=== PATIENT | female | born 1995 | race Caucasian/White ===

== ENCOUNTER 2017-01-15 01:45 | Emergency (ER) | payer OTHER ==
[2017-01-15] MEDS ORDERED: KETOROLAC 60 MG/2 ML VIAL IM STA (02:34)
[2017-01-15] MEDS ORDERED: oxyCODONE 5 MG TABLET PO STA (02:34)
[2017-01-15] MEDS ORDERED: KETOROLAC 60 MG/2 ML VIAL ONE (02:35)
[2017-01-15] MEDS ORDERED: oxyCODONE 5 MG TABLET ONE (02:35)
[2017-01-15] MEDS ORDERED: oxyCODONE/ACET 5/325 Prepack 4 PO STA (02:39)
[2017-01-15] MEDS ORDERED: oxyCODONE/ACET 5/325 Prepack 4 PO ONE (02:43)
== END 2017-01-15 03:34 | disposition home or self-care (01) ==
DX: K08.89 Other specified disorders of teeth and supporting structures (principal); S02.5XXA Fracture of tooth (traumatic), initial encounter for closed fracture; X58.XXXA Exposure to other specified factors, initial encounter; I10 Essential (primary) hypertension
CPT/HCPCS: 96372; 99283; A9270

== ENCOUNTER 2018-06-02 01:24 | Emergency (ER) | payer OTHER ==
[2018-06-02] MEDS ORDERED: BUFFERED LIDOCAINE 10 ML SYRINGE ONE (01:51)
[2018-06-02] MEDS ORDERED: DOXYCYCLINE 100 MG TABLET PO STA (02:07)
--- NOTE | 2018-06-02 02:09 | ED Physician Documentation ---
PD HPI SKIN - Stated complaint Stated Complaint: LUMP ON ABDOMEN - Chief complaint Chief Complaint: Wound - History obtained from History obtained from: Patient - Additional information Additional information: 22-year-old female with a history of recurrent abscesses and cellulitis of her groin and abdomen presents the emergency department for evaluation of an abscess and surrounding erythema. The patient started doxycycline 2 days ago to help minimize the infection but she reports increased pain and redness. The patient denies fevers, chills. No relieving factors. Symptoms are described as moderate. No other associated symptoms. Review of Systems Constitutional: denies: Fever, Chills Eyes: denies: Discharge Skin: reports: Lesions Neurologic: denies: Generalized weakness Immunocompromised: denies: Chemotherapy PD PAST MEDICAL HISTORY - Past Medical History Past Medical History: Yes Cardiovascular: Hypertension Musculoskeletal: Chronic back pain Other Past Medical History: Hidradenitis suppurativa - Past Surgical History Past Surgical History: No - Present Medications Home Medications: Ambulatory Orders Medication Instructions Recorded Confirmed Clindamycin Phosphate 30 ml TP DAILY 06/02/18 Doxycycline Monohydrate 100 mg PO BID 06/02/18 06/02/18 #103/Iron Fumarate/FA 1 tab PO DAILY 06/02/18 [ Tablet] - Allergies Allergies/Adverse Reactions: Allergies Allergy/AdvReac Type Severity Reaction Status Date / Time No Known Drug Allergies Allergy Verified 06/02/18 01:33 - Social History Does the pt smoke?: Yes Smoking Status: Current every day smoker Does the pt drink ETOH?: Yes Does the pt have substance abuse?: No Substance Use and Type: Marijuana - Immunizations Immunizations are current?: Yes - POLST Patient has POLST: No PD ED PE NORMAL - General General: Alert and oriented X 3, No acute distress - HEENT HEENT: Atraumatic, PERRL, EOMI - Respiratory Respiratory: No respiratory distress - Abdomen Abdomen: Other (There is a 3 cm x 3 cm fluctuant area under the patient's pannus with surrounding erythematous changes.) - Derm Derm: Other (Lower abdominal wall abscess) - Extremities Extremities: No deformity - Neuro Neuro: Alert and oriented X 3, Normal speech - Psych Psych: Normal affect Results - Vitals Vitals: Vital Signs - 24 hr 06/02/18 01:28 Temperature 37.0 C Heart Rate 115 H Respiratory 18 Rate Blood Pressure 156/116 H O2 Saturation 99 Oxygen O2 Source Room air Procedures - Abscess I&D (location) Abdomen Preparation: Confirmed with ultrasound, Betadine, Lidocaine 1% Incision: Incised with scalpel, Purulent drainage, Packed Other: Pt tolerated well, Dressing applied PD MEDICAL DECISION MAKING - ED course ED course: The patient's abscess was drained and packed. I have advised follow-up in 48 hours for a wound recheck and packing removal. The patient will continue the doxycycline. I discussed warning signs and recommended returning to the emergency department immediately for any worsening or any concerns. - Sepsis Event Vital Signs: Vital Signs - 24 hr 06/02/18 01:28 Temperature 37.0 C Heart Rate 115 H Respiratory 18 Rate Blood Pressure 156/116 H O2 Saturation 99 Oxygen O2 Source Room air Departure - Departure Disposition: 01 Home, Self Care Clinical Impression: Abscess or cellulitis of groin Condition: Good Instructions: ED Abscess IandD Follow-Up: ALLAN WHITFIELD [Primary Care Provider] - (Please follow-up with your primary care physician in 48 hours for a packing removal and wound recheck. If they are unable to see you in 48 hours please return to the emergency department for wound recheck) Comments: Please return to the emergency department immediately for worsening symptoms or any concerns
[2018-06-02 02:26] VITALS: BP 178/107
== END 2018-06-02 02:26 | disposition home or self-care (01) ==
LOC: ED 01:24
DX: L02.211 Cutaneous abscess of abdominal wall (principal); L53.9 Erythematous condition, unspecified; I10 Essential (primary) hypertension; F17.200 Nicotine dependence, unspecified, uncomplicated
CPT/HCPCS: 10060; 99282; 99283; A9270

== ENCOUNTER 2020-06-19 10:34 | Emergency (ER) | payer OTHER ==
[2020-06-19] MEDS ORDERED: SODIUM CHLORIDE 0.9% 1,000 ML IV STA (11:13)
[2020-06-19] MEDS ORDERED: MECLIZINE 12.5 MG TABLET PO STA (11:39)
[2020-06-19] MEDS ORDERED: diazePAM INJ 5 MG/ML SYRINGE IVP STA (11:39)
--- NOTE | 2020-06-19 11:42 | ED Physician Documentation ---
History of Present Illness - Stated complaint Stated Complaint: DIZZINESS - Chief complaint Chief Complaint: Neuro - History obtained from History obtained from: Patient - Additonal information Additional information: Patient comes emergency department complaining of a sense of dizziness/movement when she turns her head to the side or rises from a supine or sitting position to a standing position for the last couple of days. Patient states that she has never had vertigo before. She denies any lightheadedness or near syncope. No palpitations. Patient has not been nauseated or vomiting. No tinnitus. She states she has a history of hidradenitis supra T[address] [place] for which she is currently on Bactrim, but that she has never had a problem with side effects from this medication previously. Patient denies fevers or chills. She denies any recent head injury. No recent viral upper respiratory infection. Patient states that she bumped into a wall while walking today because she felt off balance, due to the vertigo. She states that if she holds her head very still and focuses her eyes in one spot, she can get the sense of vertigo to stop. She states it is definitely worse with movement. No headache. No other complaints at this time. Review of Systems Ten Systems: 10 systems reviewed and negative Constitutional: reports: Reviewed and negative Eyes: reports: Reviewed and negative Ears: reports: Reviewed and negative. denies: Tinnitus/ringing Nose: reports: Reviewed and negative Throat: reports: Reviewed and negative Cardiac: reports: Reviewed and negative Respiratory: reports: Reviewed and negative GI: reports: Reviewed and negative : reports: Reviewed and negative Skin: reports: Reviewed and negative Musculoskeletal: reports: Reviewed and negative Neurologic: reports: Other (Dizziness/vertigo) Psychiatric: reports: Reviewed and negative Endocrine: reports: Reviewed and negative Immunocompromised: reports: Reviewed and negative PD PAST MEDICAL HISTORY - Past Medical History Cardiovascular: Hypertension Respiratory: None Neuro: None Endocrine/Autoimmune: None GI: None 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 : None HEENT: None Psych: Depression Musculoskeletal: Chronic back pain Derm: None - Past Surgical History Past Surgical History: Yes Ortho: Other - Present Medications Home Medications: Ambulatory Orders Medication Instructions Recorded Confirmed Clindamycin Phosphate 30 ml TP DAILY 06/02/18 Doxycycline Monohydrate 100 mg PO BID 06/02/18 06/02/18 [id number]/Iron Fum/Folic 1 tab PO DAILY 08/06/18 [ Tablet] Clindamycin Phosphate [Cleocin T] 1 film TP BID #1 lotion 06/16/20 Doxycycline Hyclate 100 mg PO BID #19 capsule 06/16/20 Meclizine HCl 25 mg PO Q6HR PRN #20 tablet 06/19/20 - Allergies Allergies/Adverse Reactions: Allergies Allergy/AdvReac Type Severity Reaction Status Date / Time phenytoin [From Dilantin] AdvReac Hives Verified 06/19/20 10:40 - Social History Does the pt smoke?: No Smoking Status: Never smoker Does the pt drink ETOH?: Yes Does the pt have substance abuse?: No - Immunizations Immunizations are current?: Yes - POLST Patient has POLST: No PD ED PE NORMAL - Vitals Vital signs reviewed: Yes - General General: Alert and oriented X 3, No acute distress, Well developed/nourished - HEENT HEENT: Atraumatic, PERRL, EOMI, Ears normal, Moist mucous membranes - Neck Neck: Supple, no meningeal sign - Cardiac Cardiac: RRR, No murmur - Respiratory Respiratory: No respiratory distress, Clear bilaterally - Abdomen Abdomen: Soft, Non tender, Non distended - Derm Derm: Normal color, Warm and dry, No rash - Extremities Extremities: No deformity - Neuro Neuro: Alert and oriented X 3, 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-12 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, No motor deficit, No sensory deficit, Normal speech, Other (Ambulatory on a steady, narrow-based gait.) - Psych Psych: Normal mood, Normal affect Results - Vitals Vitals: Vital Signs - 24 hr 06/19/20 06/19/20 10:38 11:10 Temperature 36.8 C 36.5 C Heart Rate 79 76 Respiratory 18 18 Rate Blood Pressure 149/86 H 150/99 H O2 Saturation 98 100 Oxygen O2 Source Room air - Labs Labs: Laboratory Tests 06/19/20 06/19/20 12:00 12:00 WBC 6.9 RBC 4.44 Hgb 14.7 Hct 43.1 MCV 97.1 MCH 33.1 H MCHC 34.1 RDW 11.9 L Plt Count 267 MPV 10.9 H Neut # (Auto) 4.0 Lymph # (Auto) 2.2 Brule # (Auto) 0.6 Eos # (Auto) 0.1 Baso # (Auto) 0.0 Absolute Nucleated RBC 0.00 Nucleated RBC % 0.0 Sodium 137 Potassium 4.5 Chloride 104 Carbon Dioxide 26 Anion Gap 7.0 BUN 10 Creatinine 0.5 Estimated GFR (MDRD) 150 Glucose 87 Calcium 8.5 Total Bilirubin 0.7 AST 36 ALT 54 Alkaline Phosphatase 58 Total Protein 7.2 Albumin 3.6 Globulin 3.6 Albumin/Globulin Ratio 1.0 Lipase 27 PD MEDICAL DECISION MAKING - ED course Complexity details: reviewed old records, reviewed results, re-evaluated patient, considered differential, d/w patient ED course: I discussed with the patient that her symptoms are most consistent with a benign positional vertigo. She was worked up with labs, including TSH, and given IV fluids, meclizine, and a small dose of Valium. The patient had a regular cardiac rhythm with a normal rate, and I did not feel it was likely that her symptoms were secondary to a cardiac issue. The patient's work-up was unrem arkable. She was found to be filling much better after symptomatic treatment in the emergency department. I have discussed the most likely causes of her symptoms with her and the self-limited nature, generally, of this condition. We have discussed home management of the symptoms, as well as the usual indications for return. She has been given a prescription for meclizine for at home. Departure - Departure Disposition: 01 Home, Self Care Clinical Impression: Vertigo Condition: Stable Instructions: ED Vertigo Unspecified Prescriptions: Meclizine HCl 25 mg PO Q6HR PRN #20 tablet PRN Reason: Vertigo Comments: Your labs look good today. Your symptoms are most consistent with benign positional vertigo, as we have discussed. There are variety of causes for this and in general, and the symptoms will go away on their own in time. Please take the meclizine, as needed, and be sure to drink plenty of fluids. You may follow-up with your primary care physician if you are not feeling better after the next week.
[2020-06-19 12:15] LABS: BASOPHILS % (AUTO) 0.6 %; EOSINOPHILS # (AUTO) 0.1 10^3/uL (0.0-0.7); EOSINOPHILS % (AUTO) 1.3 %; HGB - HEMOGLOBIN 14.7 g/dL (12.0-16.0); LYMPHOCYTES # (AUTO) 2.2 10^3/uL (1.5-3.5); LYMPHOCYTES % (AUTO) 31.6 %; MEAN CORPUSCULAR HEMOGLOBIN 33.1 pg (27.0-31.0); MEAN CORPUSCULAR HGB CONC 34.1 g/dL (32.0-36.0); MEAN CORPUSCULAR VOLUME 97.1 fL (81.0-99.0); MEAN PLATELET VOLUME 10.9 fL (7.9-10.8); MONOCYTES # (AUTO) 0.6 10^3/uL (0.0-1.0); MONOCYTES % (AUTO) 8.6 %; PLT - PLATELET COUNT 267 10^3/uL (130-450); RED BLOOD COUNT 4.44 10^6/uL (4.20-5.40); RED CELL DISTRIBUTION WIDTH 11.9 % (12.0-15.0); WHITE BLOOD COUNT 6.9 x10^3/uL (4.8-10.8)
[2020-06-19 12:35] LABS: ALBUMIN 3.6 g/dL (3.2-5.5); BILIRUBIN,TOTAL 0.7 mg/dL (0.2-1.0); CALCIUM 8.5 mg/dL (8.5-10.3); CREATININE 0.5 mg/dL (0.4-1.0); TOTAL PROTEIN 7.2 g/dL (6.7-8.2)
[2020-06-19 13:29] VITALS: BP 138/73
== END 2020-06-19 13:29 | disposition home or self-care (01) ==
LOC: ED 10:34
DX: R42 Dizziness and giddiness (principal); I10 Essential (primary) hypertension
CPT/HCPCS: 36415; 83690; 96361; 96374; 99283; 99284; A9270; 80053; 84443; 85025

== ENCOUNTER 2020-09-04 19:45 | Emergency (ER) | payer OTHER ==
[2020-09-04] MEDS ORDERED: AMOX/CLAV 875 MG/125 MG TABLET PO STA (20:33)
--- NOTE | 2020-09-04 20:35 | ED Physician Documentation ---
History of Present Illness - Stated complaint Stated Complaint: HEAD PX - Chief complaint Chief Complaint: Neuro - History obtained from History obtained from: Patient - History of Present Illness Timing: How many days ago (3) Pain level max: 8 Pain level now: 8 - Additonal information Additional information: 24-year-old female presents to the emergency department stating she has a history of chronic recurrent ear infections. 2 to 3 days ago started having pain behind. She states it is worse with palpation. Occasionally has shooting pain down her neck. No fevers. No chills. No possibility of . 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 HEENT: None Psych: Depression Musculoskeletal: Chronic back pain Derm: None - Past Surgical History Past Surgical History: Yes Ortho: Other - Present Medications Home Medications: Ambulatory Orders Medication Instructions Recorded Confirmed Clindamycin Phosphate 30 ml TP DAILY 06/02/18 Doxycycline Monohydrate 100 mg PO BID 06/02/18 06/02/18 [id number]/Iron Fum/Folic 1 tab PO DAILY 06/02/18 [ Tablet] Clindamycin Phosphate [Cleocin T] 1 film TP BID #1 lotion 06/16/20 Doxycycline Hyclate 100 mg PO BID #19 capsule 06/16/20 Meclizine HCl 25 mg PO Q6HR PRN #20 tablet 06/19/20 Amox/Clav 875/125 [Augmentin] 1 tab PO Q12H #20 tablet 09/04/20 HYDROcod/ACETAM 5/325 [[place] 5/325] 1 - 2 ea PO Q6H PRN #10 tablet 09/04/20 - Allergies Allergies/Adverse Reactions: Allergies Allergy/AdvReac Type Severity Reaction Status Date / Time phenytoin [From Dilantin] AdvReac Hives Verified 09/04/20 19:55 - Social History Does the pt smoke?: No Smoking Status: Never smoker Does the pt drink ETOH?: Yes Does the pt have substance abuse?: No - Immunizations Immunizations are current?: Yes - POLST Patient has POLST: No PD ED PE NORMAL - Vitals Vital signs reviewed: Yes - General General: Alert and oriented X 3, No acute distress - HEENT HEENT: Moist mucous membranes, Other (Bilateral TM are normal. She is tender to palpation over the right mastoid area. Normal skin. No overlying skin changes. No displacement of the pinna.) - Neck Neck: Supple, no meningeal sign - Cardiac Cardiac: RRR - Respiratory Respiratory: No respiratory distress, Clear bilaterally - Abdomen Abdomen: Soft, Non tender, Non distended - Derm Derm: Warm and dry - Neuro Neuro: Alert and oriented X 3 - Psych Psych: Normal mood, Normal affect Results - Vitals Vitals: Vital Signs - 24 hr 09/04/20 19:45 Temperature 36.9 C Heart Rate 102 H Respiratory 16 Rate Blood Pressure 180/95 H O2 Saturation 96 Oxygen O2 Source Room air - Rads (name of study) CT mastoid Radiology: Prelim report reviewed, EMP read contemporaneously, See rad report (normal) PD MEDICAL DECISION MAKING - ED course Complexity details: reviewed results, re-evaluated patient, considered differential, d/w patient ED course: 24-year-old female presents to the emergency department with pain over the right mastoid area. Concern for possible mastoiditis. CT is negative. She is tender at that spot, will place on Augmentin and see how she progresses. Patient is otherwise well-appearing, nontoxic. No rash. No evidence of shingles, tinea. No evidence of carotid dissection. Patient counseled regarding signs and symptoms for which I believe and urgent re-evaluation would be necessary. Patient with good understanding of and agreement to plan and is comfortable going home at this time This document was made in part using voice recognition software. While efforts are made to proofread this document, sound alike and grammatical errors may occur. Departure - Departure Disposition: 01 Home, Self Care Clinical Impression: Scalp pain Condition: Good Instructions: ED Cephalgia Unspecified Follow-Up: Mey Tompkins, GUEST SERVICES ATTENDANT [Primary Care Provider] - Within 1 week Prescriptions: Amox/Clav 875/125 [Augmentin] 1 tab PO Q12H #20 tablet HYDROcod/ACETAM 5/325 [[place] 5/325] 1 - 2 ea PO Q6H PRN #10 tablet PRN Reason: Pain Comments: Take all antibiotics until gone. Return if you worsen Follow up with your doctor in 1 week for recheck. Your CT scan is normal tonight. Do not drink alcohol or drive while on narcotic pain medicine. Note that many narcotic pain relievers also contain tylenol/acetaminophen. Please ensure that your total dose of acetaminophen from all sources does not exceed 3 grams (3000mg) per day. You may constipated on this medication, take a stool softener such as "Colace" twice a day while you are on it. Also recommend a [id number]-kqu-zjgeprb laxative such as senna or MiraLAX any day that you do not have a bowel movement. If you received narcotic pain medication in the emergency department, do not drive or operate machinery for the next 24 hours.
--- NOTE | 2020-09-04 21:55 | CT Report ---
PROCEDURE: IAC'S WO INDICATIONS: R sided mastoid pain, swelling COMPARISON: None. TECHNIQUE: Noncontrast 0.6 mm thick direct axial and coronal sections acquired through each temporal bone separa tely. For radiation dose reduction, the following was used: automated exposure control, adjustment of mA and/or kV according to patient size. FINDINGS: Image quality: Excellent. RIGHT: External auditory canal: Canal has a normal appearance. Middle ear: The middle ear structures, including the ossicles and tympanic membrane, appear normal. No abnormal fluid or soft tissue opacification. Inner ear: Inner ear is normally formed and appears unremarkable. Facial nerve appears normal throu ghout is course. Mastoids: Mastoid air cells are clear. No bony erosions. LEFT: External auditory canal: Canal has a normal appearance. Middle ear: The middle ear structures, including the ossicles and tympanic membrane, appear normal. No abnormal fluid or soft tissue opacification. Inner ear: Inner ear is normally formed and appears unremarkable. Facial nerve appears normal throu ghout its course. Mastoids: Mastoid air cells are clear. No bony erosions. MISCELLANEOUS: Visualized surrounding bones appear unremarkable. Visualized intracranial structures , including the cerebellopontine angle cisterns, appear normal. IMPRESSION: 1. No evidence of mastoiditis. Specifically, no opacification or erosion of the mastoid air cells. Reviewed by: Brad Medel MD on 09/04/2020 9:54 PM [facility] Approved by: Brad Medel MD on 09/04/2020 9:54 PM [facility] Station ID: [id number]
[2020-09-04 22:28] VITALS: BP 160/90
== END 2020-09-04 22:26 | disposition home or self-care (01) ==
LOC: ED 19:45
DX: H92.01 Otalgia, right ear (principal); R51.9 Headache, unspecified; M54.2 Cervicalgia; I10 Essential (primary) hypertension
CPT/HCPCS: 70480; 99284; A9270

== ENCOUNTER 2021-08-30 10:44 | Outpatient (CLI) | payer OTHER ==
[2021-08-30 11:21] VITALS: BP 127/84
--- NOTE | 2021-08-30 11:21 | SLEEP CARE CONSULTATION ---
Information from patient questionnaire entered by Steff López MA. I have reviewed and concur with the information entered by Steff López MA. This document represents the service I personally performed and the decisions made by , Eleonora Justice ARNP. History of Present Illness Service Date and Time: 08/30/2021 1044 Reason for Visit: New patient Chief Complaint: reports: Insomnia, Unrefreshed sleep, Snoring, Fatigue, Other (referral) Date of Onset: 2013 Usual bedtime: 12 am Time it takes to fall asleep: 1-3 hours Snores at night: Yes Observed to quit breathing while asleep: Yes Sleeps alone due to snoring: No Number of times waking at night: 3+ Reasons for waking at night: reports: Choking, Snoring, Other (noise) Toss, Turn, or Twitch while sleeping: Yes Recalls having dreams: Yes Usually gets out of bed at: 10:00 am Feels refreshed in the morning: No Morning headache: No Sleepy or fatigued during the day: Yes Ever fallen asleep while driving: No Takes day naps: Yes (especially on days off) Dreams during day naps: No Prior sleep studies: No Additional HPI information: I had the pleasure of seeing QUINN NINO today regarding the possibility of her having a sleep disorder. Her current complaints are fatigue, insomnia, unrefreshed sleep and snoring. She is having bariatric surgery next month and was referred for evaluation of her snoring. She has had times that she has woken herself snoring and making choking sounds. She has a history of insomnia. She usually takes 1-3 hours to fall asleep. She wakes up an average 3 times a night. She can have difficulty getting back to sleep when she wakes up, from 15 minutes to hour, or not at all. She states she will sleep excessively on days she does not work to make up for not feeling rested. 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 Patient is and lives in [place]. Have you smoked in the past 12 months: No Alcohol use: Yes Alcohol amount and frequency: 1, 1 x month Caffeine use: No Family History Family history of sleep disordered breathing: No Family Hx Sleep Apnea: Mother: Snoring, Father: Snoring, Sibling: Snoring Allergies and Home Medications Known drug allergies: Yes Drug allergies reviewed: Yes (Phenytoin) Home medication list reviewed: Yes Allergy and home medication list: Zoloft Metoprolol Metformin to aid in weight loss Multivitamin Review of Systems Weight gain over past 5 years: 40 Weight loss over past 5 years: 20 Cardiovascular: reports: high blood pressure Gastrointestinal: reports: heartburn Neurological: reports: headaches Psychiatric: reports: depression. denies: anxiety Ear/Nose/Throat: reports: wisdom teeth removed. denies: tonsillectomy Endocrine: denies: thyroid disease Physical Exam Blood Pressure: 127/84 (right) Cuff size: wrist Heart Rate: 69 O2 Saturation: 98 Height: 5 ft 8.5 in Weight: 315 lb 9.6 oz Body Mass Index: 47.2 BMI Classification: Morbidly Obese Neck circumference: 17 (inches) Mouth and throat: narrow oropharynx Soft palate: long Hard palate: arched Uvula: normal Uvula visualization: 50% Mallampati Class II Tongue: enlarged in size with teeth mensah on lateral edges Tonsils: 2+ Neck: normal w/o lymphadenopathy or thyromegaly Heart: regular rate and rhythm Lungs: clear bilaterally Impression and Plan 1. Suspected Obstructive Sleep Apnea-Hypopnea Syndrome, as loud and irregular snoring, gasping or choking in sleep, frequent awakening during the night, and unrefreshed sleep. Narrow oropharynx and obesity are common predisposing factors for obstructive sleep apnea-hypopnea syndrome. I recommend proceeding to polysomnography to confirm the diagnosis and to assess severity. If the patient has significant sleep disordered breathing, a manual CPAP titration study will also be performed to find the optimal treatment pressure. I informed the patient of what the sleep studies involve and after some discussion, obtained agreement to proceed. The pathophysiology of obstructive sleep apnea-hypopnea syndrome was discussed with the patient and health risks of cardiovascular and cerebrovascular disease if not treated. AAS brochure for obstructive sleep apnea-hypopnea syndrome given and reviewed. 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 Patient agreed to plan. * Schedule polysomnography +- manual CPAP titration study and return in 1-2 weeks after the study to discuss result and initiate therapy. * Avoid long distance driving or driving when feeling sleepy. * Avoid alcohol, sedative and muscle relaxant around bedtime. * Attempt to lose weight. * Review instructions provided by trained office staff on how to prepare for the sleep study. * Return for follow-up after sleep study completed. Counseling Topics: Weight loss health impact Visit Type: In Office Time Spent with Patient (minutes): 30 Provider Statement: I spent 100% of the Face to Face Visit with the patient with greater than 50% spent counseling the patient and coordination of care.
== END 2021-08-30 10:45 | disposition home or self-care (01) ==
LOC: SC 10:44
PROVIDERS: ATTEND Nurse Practitioner Family
DX: R06.83 Snoring (principal); G47.8 Other sleep disorders; E66.01 Morbid (severe) obesity due to excess calories; Z68.42 Body mass index [BMI] 45.0-49.9, adult
CPT/HCPCS: 99203; 99212

== ENCOUNTER 2021-09-06 08:41 | Outpatient (CLI) | payer OTHER | END 2021-09-06 08:42 | disposition home or self-care (01) | LOC: SC 08:41 | PROVIDERS: ATTEND Nurse Practitioner Family | DX: G47.33 Obstructive sleep apnea (adult) (pediatric) (principal); R09.02 Hypoxemia; E66.9 Obesity, unspecified; Z68.42 Body mass index [BMI] 45.0-49.9, adult | CPT/HCPCS: 95806 ==

== ENCOUNTER 2021-09-15 09:40 | Outpatient (CLI) | payer OTHER ==
--- NOTE | 2021-09-15 09:41 | SLEEP CARE CONSULTATION ---
Information from patient questionnaire entered by Steff López MA. I have reviewed and concur with the information entered by Steff López MA. This document represents the service I personally performed and the decisions made by , Eleonora Justice ARNP. History of Present Illness Service Date and Time: 09/15/2021 0920 Initial [place] Sleepiness Scale score: 3 (2020) Current [place] Sleepiness Scale score: 3 Additional HPI information: QUINN NINO returns via video telehealth visit for follow up and results of the recently performed home sleep study. I explained the pathophysiology behind obstructive sleep apnea. We then spent quite a bit of time discussing different treatment options. For mild obstructive sleep apnea, surgery and oral appliance are alternatives to nasal CPAP therapy but in moderate or severe cases, nasal CPAP is the most effective and reliable treatment. Because apnea is primarily in supine position, then positional management therapy could be effective. Methods discussed such as positioning with pillows, using a T-shirt with tennis balls in the back, and shown commercial products that have a pillow format on back to prevent supine sleep. I reviewed the impact of weight changes on sleep apnea and strongly recommended losing weight. After some discussion, the patient opted to go with the nasal CPAP therapy. Nasal autoCPAP set at 4-15 cmH20 will be ordered with rationale explained. A manual titration study will be ordered if unable to find optimal pressure with office adjustments. I explained how CPAP machine works and what to expect when using the machine. Using CPAP every night in order to get used to it was emphasized. Patient advised to put CPAP mask on before getting into bed so as not to fall asleep without CPAP. To assist acclimation to CPAP use, it could also be used for a short time during day while reading or watching TV. The patient was instructed to call the CPAP supplier to discuss any mechanical problem that may occur. If the mask given is uncomfortable or is difficult to keep on through the night even with adjustment, contact the CPAP supplier as many will replace with another mask style if notified before 30 days. If snoring or perceives is not getting enough air or too much air from the machine, notify this office. Patient counseled not drink alcohol less than 4 hours before bedtime as it can increase snoring and apnea. Patient was cautioned about risks of drowsy driving until sleepiness symptoms resolve. Sleep Study - Results Type of Sleep Study: Home sleep study Prior sleep studies: No Polysomnography/Home Sleep Study results: Physician Impression: The quality of the study is fair due to partial loss of airflow signal.. The length of the study is adequate (> 240 minutes). Please also see the tabulated and graphic data. 1. Obstructive Sleep Apnea-Hypopnea (ICD-10 G47.33), moderate, with an AHI of 17.9/hr and marcial SaO2 of 86%. During the study, the patient had 7 apneas (7 obstructive, 0 central, 0 mixed) and 44 hypopneas. The longest episode lasted 71.0 seconds. The patient did not sleep supine during this study (supine AHI was 0.0 and non-supine, 17.92). 2. Hypoxemia (ICD-10 R09.02), mild, with the lowest oxygen saturation of 86 % and 2.2 minutes with SaO2 under 90%. Baseline oxygen saturation was normal (Average oxygen saturation was 95%). Allergies and Home Medications Home medication list reviewed: Yes (no changes) Review of Systems Review of systems same as previous: Yes (no changes) Physical Exam Vital signs obtained and entered by: Telehealth visit to reduce exposure during Covid pandemic Height: 5 ft 8.5 in Impression and Plan 1. Obstructive Sleep Apnea-Hypopnea Syndrome, moderate, with lowest oxygen saturation of 86%. Obviously this is the cause of the patients symptoms of unrefreshed sleep, and excessive daytime sleepiness. Positive pressure therapy c ould benefit hypertension, depression and gastric reflux. As mentioned above, the patient will be started on nasal autoCPAP therapy with pressure set at 4-15 cmH2O. A manual titration study will be completed if unable to find optimal treatment pressure with office adjustments. Compliance guidelines also reviewed. A copy of compliance guidelines will be given for reference at check out. 2. Hypoxemia, mild, with the lowest oxygen saturation of 86 % and 2.2 minutes with SaO2 under 90%. Her baseline oxygen saturation was normal with an average oxygen saturation of 95%. * Nasal auto CPAP therapy, pressure at 4-15 cm H2O. * Attempt to lose weight. * Avoid alcohol consumption near bedtime. * Avoid supine sleep until using CPAP. * The patient is again cautioned about driving until sleepiness completely resolves. * Return one month after CPAP obtained. I will assess response to therapy and compliance at that time. Counseling Topics: Weight loss health impact Visit Type: Telehealth Video Patient Location: Home Location of Provider: Office Patient agrees and consents to this telehealth visit type: Yes Patient agrees to have their insurance billed: Yes Time Spent with Patient (minutes): 21 Provider Statement: I spent 100% of the Telehealth Video Call with the patient with greater than 50% spent counseling the patient and coordination of care.
== END 2021-09-15 09:41 | disposition home or self-care (01) ==
LOC: SC 09:40
PROVIDERS: ATTEND Nurse Practitioner Family
DX: G47.33 Obstructive sleep apnea (adult) (pediatric) (principal); R09.02 Hypoxemia

== ENCOUNTER 2022-02-26 19:50 | Emergency (ER) | payer OTHER ==
[2022-02-26] MEDS ORDERED: SODIUM CHLORIDE 0.9% 1,000 ML IV STA ×2 (20:23→22:06)
[2022-02-26 20:34] LABS: BASOPHILS % (AUTO) 0.3 %; EOSINOPHILS # (AUTO) 0.1 10^3/uL (0.0-0.7); EOSINOPHILS % (AUTO) 1.4 %; HCT - HEMATOCRIT 41.8 % (37.0-47.0); HGB - HEMOGLOBIN 14.7 g/dL (12.0-16.0); LYMPHOCYTES # (AUTO) 2.8 10^3/uL (1.5-3.5); LYMPHOCYTES % (AUTO) 30.6 %; MEAN CORPUSCULAR HEMOGLOBIN 33.2 pg (27.0-31.0); MEAN CORPUSCULAR HGB CONC 35.2 g/dL (32.0-36.0); MEAN CORPUSCULAR VOLUME 94.4 fL (81.0-99.0); MEAN PLATELET VOLUME 10.1 fL (7.9-10.8); MONOCYTES # (AUTO) 0.7 10^3/uL (0.0-1.0); MONOCYTES % (AUTO) 7.8 %; NEUTROPHILS # (AUTO) 5.5 10^3/uL (1.5-6.6); NEUTROPHILS % (AUTO) 59.4 %; PLT - PLATELET COUNT 281 10^3/uL (130-450); RED BLOOD COUNT 4.43 10^6/uL (4.20-5.40); RED CELL DISTRIBUTION WIDTH 12.2 % (12.0-15.0); WHITE BLOOD COUNT 9.2 x10^3/uL (4.8-10.8)
[2022-02-26 20:47] LABS: ALBUMIN 4.1 g/dL (3.2-5.5); BILIRUBIN,TOTAL 1.1 mg/dL (0.2-1.0); CALCIUM 9.2 mg/dL (8.5-10.3); CREATININE 0.7 mg/dL (0.4-1.0); MAGNESIUM 1.7 mg/dL (1.7-2.8); POTASSIUM 3.6 mmol/L (3.5-5.0); TOTAL PROTEIN 8.2 g/dL (6.7-8.2)
[2022-02-26] MEDS ORDERED: IOVERSOL 320 50 ML VIAL ONE (20:50)
[2022-02-26] MEDS ORDERED: IOPAMIDOL-300 100 ML VIAL ONE (20:50)
[2022-02-26] MEDS ORDERED: IOPAMIDOL-300 100 ML VIAL IVP ONE (21:20)
[2022-02-26] MEDS ORDERED: IOVERSOL 320 50 ML VIAL PO ONE (21:20)
--- NOTE | 2022-02-26 22:07 | ED Physician Documentation ---
History of Present Illness - Stated complaint Stated Complaint: PRE OP COMPLICATIONS - Chief complaint Chief Complaint: General - History obtained from History obtained from: Patient - Additonal information Additional information: Patient is a 26-year-old female who is postop day 7 from a Cordelia-en-Y procedure at [facility]. She was kept in the hospital for 2 days due to difficulties with keeping up with p.o. hydration. Since discharge she has continued to have difficulties with maintaining recommended amounts of fluid intake She is feeling an aversion to taking in too much liquids. She a dditionally is having trouble taking in protein as various forms leave a bad taste or film in her mouth and she is not wanting to drinkThe protein options that she has.. She has recently been only able to take in approximately 8 ounces of fluid per dayAnd is supposed to take 64 ounces. She reports feeling shaky at times and having decreased energy. She denies associated nausea, vomiting or abdominal pain. She denies chest pain or difficulty breathing. She did speak with herBariatric surgeon who recommended coming to the emergency department for IV hydration. Her next scheduled follow-up is March 02.She denies any pain or swelling in lower extremities. Review of Systems Constitutional: denies: Fever Nose: denies: Congestion Cardiac: denies: Chest pain / pressure Respiratory: denies: Dyspnea, Cough GI: denies: Abdominal Pain, Vomiting, Diarrhea : denies: Dysuria Musculoskeletal: denies: Back pain Neurologic: reports: Generalized weakness. 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 : None HEENT: None Psych: Depression Musculoskeletal: Chronic back pain Derm: None - Past Surgical History Past Surgical History: Yes Ortho: Other - Present Medications Home Medications: Ambulatory Orders Medication Instructions Recorded Confirmed Clindamycin Phosphate 30 ml TP DAILY 06/02/18 02/26/22 Sic007/Iron Fum/Folic 1 tab PO DAILY 06/02/18 02/26/22 [ Tablet] Doxycycline Hyclate 100 mg PO BID #19 capsule 06/16/20 02/26/22 Metoprolol Tartrate [Lopressor] 50 mg PO ONCE 02/26/22 02/26/22 Omeprazole 40 mg PO DAILY 02/26/22 02/26/22 Sertraline [Zoloft] 50 mg PO DAILY 02/26/22 02/26/22 Topiramate 50 mg PO DAILY 02/26/22 02/26/22 - Allergies Allergies/Adverse Reactions: Allergies Allergy/AdvReac Type Severity Reaction Status Date / Time phenytoin [From Dilantin] AdvReac Hives Verified 02/26/22 19:57 - Social History Does the pt smoke?: No Smoking Status: Never smoker Does the pt drink ETOH?: Yes Does the pt have substance abuse?: No - Immunizations Immunizations are current?: Yes - POLST Patient has POLST: No PD ED PE NORMAL - General General: Alert and oriented X 3, No acute distress, Well developed/nourished - HEENT HEENT: Atraumatic, Moist mucous membranes, Pharynx benign - Neck Neck: Supple, no meningeal sign - Cardiac Cardiac: RRR, No murmur, Strong equal pulses - Respiratory Respiratory: No respiratory distress, Clear bilaterally - Abdomen Abdomen: Normal bowel sounds, Soft, Non distended, Other (Mild epigastric and periumbilical tenderness to palpation, well-healing incisions from recent surgery With no significant erythema or abnormal drainage) - Back Back: No CVA TTP - Derm Derm: Normal color, No rash - Extremities Extremities: No edema, No calf tenderness / cord - Neuro Neuro: Normal speech - Psych Psych: Normal mood, Normal affect Results - Vitals Vitals: Vital Signs - 24 hr 02/26/22 02/26/22 02/26/22 19:52 20:56 21:45 Temperature 35.6 C L Heart Rate 128 H 96 77 Respiratory 18 21 22 Rate Blood Pressure 149/92 H 152/98 H 144/73 H O2 Saturation 99 98 98 02/26/22 02/26/22 23:00 23:37 Temperature 36.3 C L 36.3 C L Heart Rate 71 72 Respiratory 16 16 Rate Blood Pressure 156/91 H 155/89 H O2 Saturation 98 99 Oxygen O2 Source Room air - EKG (time done) 2043 Rate: Rate (enter#) (87) Rhythm: NSR [place]: Normal Ischemia: No: ST elevation c/w ischemia Computer interpretation: Disagree with computer 2246 Rate: Rate (enter#) (79) Rhythm: NSR [place]: Normal Ischemia: No: ST elevation c/w ischemia Computer interpretation: Agree with computer - Labs Labs: Laboratory Tests 02/26/22 02/26/22 02/26/22 20:29 20:29 22:05 WBC 9.2 RBC 4.43 Hgb 14.7 Hct 41.8 MCV 94.4 MCH 33.2 H MCHC 35.2 RDW 12.2 Plt Count 281 MPV 10.1 Neut # (Auto) 5.5 Lymph # (Auto) 2.8 [place] # (Auto) 0.7 Eos # (Auto) 0.1 Baso # (Auto) 0.0 Absolute Nucleated RBC 0.00 Nucleated RBC % 0.0 Sodium 139 Potassium 3.6 Chloride 105 Carbon Dioxide 21 Anion Gap 13.0 BUN 13 Creatinine 0.7 Estimated GFR (MDRD) 100 Glucose 91 Calcium 9.2 Magnesium 1.7 Total Bilirubin 1.1 H AST 34 ALT 58 Alkaline Phosphatase 58 Total Protein 8.2 Albumin 4.1 Globulin 4.1 Albumin/Globulin Ratio 1.0 Lipase 33 Urine Color YELLOW Urine Clarity CLEAR Urine pH 5.0 Ur Specific [place] <=1.005 Urine Protein NEGATIVE Urine Glucose (UA) NEGATIVE Urine Ketones 40 H Urine Occult Blood SMALL H Urine Nitrite NEGATIVE Urine Bilirubin NEGATIVE Urine Urobilinogen 0.2 (NORMAL) Ur Leukocyte Esterase NEGATIVE Urine RBC 0-5 Urine WBC 0-3 Ur Squamous Epith Cells MOD Squamous H Urine Bacteria None Seen Ur Microscopic Review INDICATED Urine Culture Comments NOT INDICATED Urine HCG, Qual NEGATIVE PD MEDICAL DECISION MAKING - ED course Complexity details: reviewed results, re-evaluated patient, d/w patient ED course: Patient with generalized weakness and feeling shaky who is 7 days postop from bariatric surgery. She is tachycardic on arrival. Overall abdominal exam is benign. She additionally denies chest pain or difficulty breathing. Her t achycardia quickly resolved at rest and she is not hypoxic. Do not suspect pulmonary embolism. She does not have lower extremity swelling or tenderness.Labs reviewed and reassuring. CT abdomen and pelvis obtained to evaluate for leakGiven aversion to p.o. intakeAnd mild abdominal tenderness. CT scan is negative for leak or abscess but does show signs of gastritis. Patient was prescribed omeprazole by her bariatric surgeon but has not been taking it as she is feeling nervous about taking a capsule. She has ordered a dissolvable omeprazole from [facility] which is to arrive tomorrow. Encouraged to be compliant with medication recommendations and also continue withTrying to keep up with her fluid intake. Patient was hydrated with 2 L of IV fluids and significantly feeling better.She is aware of strict return precautions. 2206 - Ambulatory to restroom, no SOB or CP, feels better, doesn't feel shaky, appears steady. Departure - Departure Disposition: 01 Home, Self Care Clinical Impression: Dehydration, H/O bariatric surgery, Sinus tachycardia Condition: Stable Instructions: ED Dehydration Comments: Deedee, you were found to be dehydrated tonight. Your heart rate was fast but appears to be in a normal rhythm based on her EKG. Your labs were reassuring. A CT scan was done and is negative for signs of a leak or an abscess related to your recent surgery. There were findings of gastritis which could be causing some of your symptoms. Please take the omeprazole as prescribed by your doctor. Please try your best to adhere to the fluid and protein intake as recommended by your bariatric surgeon. Please maintain close follow-up with your surgeon. If it anytime you have any new or worsening symptoms such as dizziness, chest pain, difficulty breathing, vomiting, pain, leg swelling or have any concerns please return to the emergency department. Discharge Date/Time: 02/26/22 23:37
[2022-02-26 22:12] LABS: BILIRUBIN,URINE NEGATIVE (NEGATIVE); GLUCOSE, URINE (UA) NEGATIVE (NEGATIVE); KETONES,URINE (UA) 40 mg/dL (NEGATIVE); LEUKOCYTE ESTERASE, URINE NEGATIVE (NEGATIVE); NITRITE,URINE NEGATIVE (NEGATIVE); OCCULT BLOOD,URINE SMALL (NEGATIVE); PROTEIN,URINE NEGATIVE (NEGATIVE); UROBILINOGEN,URINE 0.2 (NORMAL) E.U./dL (NORMAL)
[2022-02-26 22:13] LABS: CLARITY,URINE CLEAR (CLEAR)
[2022-02-26 22:14] LABS: HCG UR QUAL NEGATIVE
[2022-02-26 22:21] LABS: BACTERIA,URINE None Seen /HPF (None Seen); RBC,URINE 0-5 /HPF (0-5); SQUAMOUS EPITHELIAL CELL,UR MOD Squamous (<= Few); WBC,URINE 0-3 /HPF (0-5)
--- NOTE | 2022-02-26 22:25 | CT Report ---
PROCEDURE: Abdomen/Pelvis W INDICATIONS: 1 week post op alondra en Y; tachycardic CONTRAST: IV CONTRAST: Isovue 300 ml: 100 PO CONTRAST: Optiray 320 ml50 TECHNIQUE: After the administration of oral and intravenous contrast, 5 mm thick sections acquired from the diap hragms to the symphysis. 5 mm thick coronal and sagittal reformats were acquired. For radiation dos e reduction, the following was used: automated exposure control, adjustment of mA and/or kV accordin g to patient size. COMPARISON: None. FINDINGS: Image quality: Excellent. ABDOMEN: Lung bases: Lung bases are clear. Heart size is normal. Solid organs: There is hypoattenuation of the liver suggestive of fatty infiltration. Focal fatty inf iltration also demonstrated anteriorly in the left hepatic lobe along falciform ligament. Gallbladder appears within normal limits without calcified gallstones. Biliary system is non dilated. The splee n is normal in size. Pancreas enhances normally without peripancreatic fat stranding or fluid collect ions. No adrenal nodules. Kidneys demonstrate no hydronephrosis. Peritoneum and bowel: Postsurgical changes are demonstrated consistent with Alondra-en-Y gastric bypass . There is mild wall thickening involving the excluded stomach. Bowel loops demonstrate normal wall t hickness and caliber. No evidence of appendicitis. There is mild colonic diverticulosis without acut e diverticulitis. No free fluid or air. No loculated fluid collections to suggest an abscess. Nodes and vessels: No retroperitoneal or mesenteric adenopathy by size criteria. Aorta and inferior vena cava are normal in size. Miscellaneous: No ventral hernias. PELVIS: Genitourinary: Bladder wall thickness is normal. The bladder is partially distended. Miscellaneous: No inguinal hernias or adenopathy. Bones: No suspicious bony lesions. No vertebral body compression fractures. IMPRESSION: 1. Postsurgical changes consistent with Alondra-en-Y gastric bypass without evidence of anastomotic leak , obstruction, or abscess. 2. Mild gastric wall thickening within the excluded stomach suggestive of a gastritis involving the a fferent loop. Reviewed by: Brad Medel MD on 02/26/2022 10:23 PM PDT Approved by: Brad Medel MD on 02/26/2022 10:23 PM PDT Station ID: [id number]
[2022-02-26 23:39] VITALS: BP 155/89
== END 2022-02-26 23:37 | disposition home or self-care (01) ==
LOC: ED 19:50
DX: K91.89 Other postprocedural complications and disorders of digestive system (principal); E86.0 Dehydration; R00.0 Tachycardia, unspecified
CPT/HCPCS: 36415; 74177; 80053; 81001; 81025; 83690; 83735; 85025; 93005; 96360; 96361; 99283; 99284; Q9967; 81003; 87086

== ENCOUNTER 2022-05-16 08:00 | Outpatient (CLI) | payer OTHER ==
[2022-05-16 23:11] LABS: CHLAMYDIA TRACHOMATIS DNA NEGATIVE (NEGATIVE); NEISSERIA GONORRHOEAE DNA NEGATIVE (NEGATIVE); TRICHOMONAS VAGINALIS DNA NEGATIVE (NEGATIVE)
[2022-05-17 03:08] LABS: RPR Non Reactive (Non Reactive)
[2022-05-17 04:08] LABS: HCV AB <0.1 s/co ratio (0.0-0.9); HIV SCREEN 4TH GENERATION Non Reactive (Non Reactive)
== END 2022-05-16 23:59 | disposition home or self-care (01) ==
LOC: LAB.N 08:00
PROVIDERS: ATTEND Physician Assistant
DX: Z11.3 Encounter for screening for infections with a predominantly sexual mode of transmission (principal)
CPT/HCPCS: 36415; 86592; 86803; 87389; 87491; 87591; 87661

== ENCOUNTER 2022-05-28 14:35 | Outpatient (CLI) | payer OTHER ==
[~2022-05-28 14:35] MED LIST: GADOBUTROL 15 MMOL/15 ML VIAL ONE
[2022-05-28] MEDS ORDERED: GADOBUTROL 15 MMOL/15 ML VIAL IVP ONE (17:01)
--- NOTE | 2022-05-28 17:20 | MRI Report ---
PROCEDURE: Brain with and without INDICATIONS: DIZZINESS AND GIDDINESS CONTRAST: 10 ml gadolinium IV. TECHNIQUE: Noncontrast axial T1 spin echo, axial T2 fast spin echo, sagittal and axial FLAIR, coronal T2 fast sp in echo, axial gradient echo, axial diffusion and ADC through the brain. After the administration of contrast, axial and coronal T1 spin echo with fat saturation through the brain. COMPARISON: 09/04/2020 CT IAC's. FINDINGS: Image quality: Degraded by patient motion artifact. CSF spaces: Basal cisterns are patent. No extra-axial fluid collections. Ventricles are normal in size and shape. Brain: No midline shift. No intracranial bleeds or masses. No abnormal intracranial enhancement. Prominent perivascular spaces noted in the left basal ganglia. The brainstem appears normal. Diffu hitesh-weighted images demonstrate no acute ischemic insults. No chronic ischemic insults. Normal int ravascular flow voids are present. Dural sinuses demonstrate normal postcontrast enhancement. Skull and face: Calvarial marrow is normal in signal. Orbits appear normal. Sinuses: Sinuses and mastoids appear clear. IMPRESSION: 1. No acute intracranial disease process. 2. No abnormal intracranial mass or mass effect. 3. No suspicious postcontrast enhancement. Reviewed by: Chrissy Watson MD, PhD on 05/28/2022 5:19 PM PDT Approved by: Chrissy Watson MD, PhD on 05/28/2022 5:19 PM PDT Station ID: [id number]
== END 2022-05-28 14:36 | disposition home or self-care (01) ==
LOC: DI 14:35
PROVIDERS: ATTEND Nurse Practitioner Family
DX: R42 Dizziness and giddiness (principal)
CPT/HCPCS: 70551; 70553; A9585

== ENCOUNTER 2022-10-04 08:00 | Outpatient (CLI) | payer OTHER ==
[2022-10-04 17:57] LABS: HCT - HEMATOCRIT 40.1 % (37.0-47.0); HGB - HEMOGLOBIN 13.5 g/dL (12.0-16.0); MEAN CORPUSCULAR HEMOGLOBIN 32.3 pg (27.0-31.0); MEAN CORPUSCULAR HGB CONC 33.7 g/dL (32.0-36.0); MEAN CORPUSCULAR VOLUME 95.9 fL (81.0-99.0); MEAN PLATELET VOLUME 10.6 fL (7.9-10.8); RED BLOOD COUNT 4.18 10^6/uL (4.20-5.40); RED CELL DISTRIBUTION WIDTH 12.3 % (12.0-15.0); WHITE BLOOD COUNT 7.3 x10^3/uL (4.8-10.8)
== END 2022-10-04 23:59 | disposition home or self-care (01) ==
LOC: LAB.WC 08:00
PROVIDERS: ATTEND Nurse Practitioner
DX: N92.0 Excessive and frequent menstruation with regular cycle (principal); N93.8 Other specified abnormal uterine and vaginal bleeding
CPT/HCPCS: 36415; 82728; 85027

== ENCOUNTER 2022-10-04 17:22 | Outpatient (CLI) | payer OTHER ==
--- NOTE | 2022-10-04 18:51 | Ultrasound Report ---
PROCEDURE: Pelvic w/Transvaginal INDICATIONS: PELVIC PAIN TECHNIQUE: Real-time scanning was performed of the pelvic organs, with image documentation. Additional endovagi nal scanning was necessary due to incomplete visualization of the adnexal and endometrial structures by transabdominal scanning. COMPARISON: None. FINDINGS: Uterus: Uterus is anteverted and normal in size at 7.0 x 2.7 x 3.9 cm. The myometrium is homogeneou s. The endometrium measures 3.4 mm in combined thickness. There is a left posterior focus of intram ural somewhat heterogeneous echogenicity within the uterus measuring 1.8 x 1.6 x 1.6 cm. Ovaries: The right ovary measures 4.0 x 3.0 x 5.5 cm, with a calculated ovarian volume of 34.3 cc. The left ovary measures 3.9 x 1.9 x 3.7 cm, with a calculated ovarian volume of 14.1 cc. Focus of het erogeneous echogenicity is present within the right ovary measuring 3.2 x 2.7 x 3.4 cm. Other: No pa thologic free abdominal or pelvic fluid. IMPRESSION: Hemorrhagic right ovarian cyst. Questionable 1.8 cm fibroid. Reviewed by: Sneha Hendrickson MD on 10/04/2022 6:50 PM PST Approved by: Sneha Hendrickson MD on 10/04/2022 6:50 PM PST Station ID: [id number]
== END 2022-10-04 17:23 | disposition home or self-care (01) ==
LOC: DI 17:22
PROVIDERS: ATTEND Nurse Practitioner
DX: N93.8 Other specified abnormal uterine and vaginal bleeding (principal); N92.0 Excessive and frequent menstruation with regular cycle; N83.201 Unspecified ovarian cyst, right side; R93.89 Abnormal findings on diagnostic imaging of other specified body structures
CPT/HCPCS: 36415; 82728; 85027

== ENCOUNTER 2022-12-07 10:15 | Outpatient (CLI) | payer OTHER | END 2022-12-07 10:16 | disposition home or self-care (01) | LOC: LAB 10:15 | PROVIDERS: ATTEND Nurse Practitioner | DX: Z32.01 Encounter for pregnancy test, result positive (principal) | CPT/HCPCS: 36415; 84702 ==

== ENCOUNTER 2022-12-14 04:41 | Emergency (ER) | payer OTHER ==
[2022-12-14 05:24] LABS: BASOPHILS % (AUTO) 0.2 %; BILIRUBIN,URINE NEGATIVE (NEGATIVE); EOSINOPHILS # (AUTO) 0.1 10^3/uL (0.0-0.7); EOSINOPHILS % (AUTO) 0.7 %; GLUCOSE, URINE (UA) NEGATIVE (NEGATIVE); HCT - HEMATOCRIT 41.6 % (37.0-47.0); HGB - HEMOGLOBIN 14.2 g/dL (12.0-16.0); KETONES,URINE (UA) NEGATIVE (NEGATIVE); LEUKOCYTE ESTERASE, URINE NEGATIVE (NEGATIVE); LYMPHOCYTES # (AUTO) 2.8 10^3/uL (1.5-3.5); LYMPHOCYTES % (AUTO) 17.8 %; MEAN CORPUSCULAR HEMOGLOBIN 32.3 pg (27.0-31.0); MEAN CORPUSCULAR HGB CONC 34.1 g/dL (32.0-36.0); MEAN CORPUSCULAR VOLUME 94.8 fL (81.0-99.0); MEAN PLATELET VOLUME 10.2 fL (7.9-10.8); MONOCYTES # (AUTO) 0.9 10^3/uL (0.0-1.0); MONOCYTES % (AUTO) 5.8 %; NEUTROPHILS # (AUTO) 11.8 10^3/uL (1.5-6.6); NEUTROPHILS % (AUTO) 75.1 %; NITRITE,URINE NEGATIVE (NEGATIVE); OCCULT BLOOD,URINE NEGATIVE (NEGATIVE); PLT - PLATELET COUNT 283 10^3/uL (130-450); PROTEIN,URINE NEGATIVE (NEGATIVE); RED BLOOD COUNT 4.39 10^6/uL (4.20-5.40); RED CELL DISTRIBUTION WIDTH 12.7 % (12.0-15.0); UROBILINOGEN,URINE 2 E.U./dL (NORMAL); WHITE BLOOD COUNT 15.8 x10^3/uL (4.8-10.8)
[2022-12-14] MEDS ORDERED: SODIUM CHLORIDE 0.9% 1,000 ML IV STA (05:25)
[2022-12-14] MEDS ORDERED: ONDANSETRON 4 MG/2 ML VIAL IVP STA (05:26)
[2022-12-14] MEDS ORDERED: KETOROLAC 30 MG/ML VIAL IVP STA (05:26)
[2022-12-14] MEDS ORDERED: HYDROmorphone 1 MG/ML CARPUJECT IVP STA ×3 (05:26→12:48)
[2022-12-14 05:30] LABS: CLARITY,URINE CLEAR (CLEAR)
[2022-12-14 05:37] LABS: ALBUMIN 3.7 g/dL (3.2-5.5); BILIRUBIN,TOTAL 1.2 mg/dL (0.2-1.0); CALCIUM 9.1 mg/dL (8.5-10.3); CREATININE 0.6 mg/dL (0.4-1.0); POTASSIUM 3.7 mmol/L (3.5-5.0); TOTAL PROTEIN 7.3 g/dL (6.7-8.2)
[2022-12-14] MEDS ORDERED: iohexoL-300 100 ML VIAL ONE (05:41)
--- NOTE | 2022-12-14 05:57 | ED Physician Documentation ---
PD HPI ABD PAIN - Stated complaint Stated Complaint: RLQ pain - Chief complaint Chief Complaint: Abd Pain - History obtained from History obtained from: Patient - Additional information Additional information: The patient comes to the emergency department chief complaint of right lower quadrant abdominal pain and nausea that began yesterday around 1730. The patient states that she had Feltz well prior to this. She states that being in the hot bath made it somewhat better, but that it reached a certain level and has been at that level ever since. She states the pain is about a 4 out of 10 if she is not moving, but if she has to get up and move around, it jumps up to a 6 or higher. The patient has a history of a gastric bypass surgery, and states that the nature of the pain feels like when she was in the first 6 days after her surgery and was still in pain recovering. She has a little dysuria 2. She states she is always cold, and has not noticed any distinctive chills. No fevers. She has not vomited. No change in her bowel habits. The patient other than gastric bypass surgery has not had any abdominal surgery. No other complaints at this time. 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 : None HEENT: None Psych: Depression Musculoskeletal: Chronic back pain Derm: None Other Past Medical History: PCOS - Past Surgical History Past Surgical History: Yes General: Gastric surgery Ortho: Other - Present Medications Home Medications: Ambulatory Orders Medication Instructions Recorded Confirmed Sertraline [Zoloft] 100 mg PO DAILY 02/26/22 12/14/22 Topiramate 50 mg PO DAILY 02/26/22 12/14/22 Multivitamin 1 tab PO DAILY 12/14/22 12/14/22 Omeprazole Magnesium 20 mg PO DAILY 12/14/22 12/14/22 metFORMIN [Glucophage] 500 mg PO BID 12/14/22 12/14/22 - Allergies Allergies/Adverse Reactions: Allergies Allergy/AdvReac Type Severity Reaction Status Date / Time NSAIDS (Non-Steroidal AdvReac Unknown Verified 12/14/22 05:04 Anti-Inflamma phenytoin [From Dilantin] AdvReac Hives Verified 12/14/22 05:04 - Social History Does the pt smoke?: No Smoking Status: Never smoker Does the pt drink ETOH?: Yes Does the pt have substance abuse?: No - Immunizations Immunizations are current?: Yes - POLST Patient has POLST: No PD ED PE NORMAL - Vitals Vital signs reviewed: Yes - General General: Alert and oriented X 3, No acute distress, Well developed/nourished - HEENT HEENT: Atraumatic, PERRL, EOMI - Neck Neck: Supple, no meningeal sign - Cardiac Cardiac: RRR, No murmur, Strong equal pulses - Respiratory Respiratory: No respiratory distress, Clear bilaterally - Abdomen Abdomen: Soft, Non distended, Other (Mild tenderness over left side and right upper quadrant; moderate tenderness over right lower quadrant.) - Derm Derm: Warm and dry - Extremities Extremities: No deformity - Neuro Neuro: Alert and oriented X 3 - Psych Psych: Normal mood, Normal affect Results - Vitals Vitals: Vital Signs - 24 hr 12/14/22 12/14/22 12/14/22 04:50 05:56 06:25 Temperature 36.9 C Heart Rate 75 69 73 Respiratory 18 15 14 Rate Blood Pressure 138/101 H 129/69 123/86 H O2 Saturation 98 99 100 12/14/22 06:45 Temperature 36.9 C Heart Rate 66 Respiratory 16 Rate Blood Pressure 133/92 H O2 Saturation 100 Oxygen O2 Source Room air - Labs Labs: Laboratory Tests 12/14/22 12/14/22 12/14/22 04:50 04:50 04:50 WBC 15.8 H RBC 4.39 Hgb 14.2 Hct 41.6 MCV 94.8 MCH 32.3 H MCHC 34.1 RDW 12.7 Plt Count 283 MPV 10.2 Neut # (Auto) 11.8 H Lymph # (Auto) 2.8 [place] # (Auto) 0.9 Eos # (Auto) 0.1 Baso # (Auto) 0.0 Absolute Nucleated RBC 0.00 Nucleated RBC % 0.0 Sodium 136 Potassium 3.7 Chloride 111 Carbon Dioxide 19 L Anion Gap 6.0 BUN 13 Creatinine 0.6 Estimated GFR (MDRD) 119 Glucose 102 H Calcium 9.1 Total Bilirubin 1.2 H AST 26 ALT 35 Alkaline Phosphatase 101 Total Protein 7.3 Albumin 3.7 Globulin 3.6 Albumin/Globulin Ratio 1.0 Lipase 29 Urine Color YELLOW Urine Clarity CLEAR Urine pH 6.0 Ur Specific [place] 1.025 Urine Protein NEGATIVE Urine Glucose (UA) NEGATIVE Urine Ketones NEGATIVE Urine Occult Blood NEGATIVE Urine Nitrite NEGATIVE Urine Bilirubin NEGATIVE Urine Urobilinogen 2 H Ur Leukocyte Esterase NEGATIVE Ur Microscopic Review NOT INDICATED Urine Culture Comments NOT INDICATED - Rads (name of study) CT abdomen and pelvis Radiology: Final report received, See rad report (Appendix mildly distended with edema of periappendiceal fat; difficult to exclude acute appendicitis. Distended gallbladder without calcified stones. Right ovarian cyst.) PD Medical Decision Making - ED course Complexity details: reviewed results, re-evaluated patient, considered differential, d/w patient ED course: The patient was treated symptomatically with IV fluids, Zofran, Dilaudid, and Toradol, and I did order a CBC, ear abdominal panel, urinalysis, and CT scan of the abdomen and pelvis. The patient's laboratory studies were reviewed by me and CBC showed a white blood cell count of nearly 16,000. The abdominal panel is unremarkable. Urinalysis was also negative. The CT showed inflammation in the periappendiceal fat with mild distention of the appendix. Considering the patient's tenderness and her course of symptoms, as well as her significant leukocytosis, I felt that there is a high likelihood that she did have appendicitis. The patient requested that Dr. Luna be contacted to see if he would be willing to do her surgery. I spoke with Dr. Luna who agreed to come and see the patient later this morning. She was feeling much better after Dilaudid, though still had a little bit of nausea, says she was treated symptomatically for this. She will remain in the emergency department under the care of my oncoming colleague With plan for surgery evaluation a little bit later this morning.
[2022-12-14] MEDS ORDERED: iohexoL-300 100 ML VIAL IVP ONE (06:32)
[2022-12-14] MEDS ORDERED: DROPERIDOL 5 MG/2 ML VIAL IVP STA (07:28)
[2022-12-14] MEDS ORDERED: PIPERACILLIN/TAZOBACTAM 3.375 GM in SODIUM CHLORIDE 0.9% MINIBAG 100 ML IV STA (08:04)
--- NOTE | 2022-12-14 08:11 | CT Report ---
PROCEDURE: ABDOMEN/PELVIS W INDICATIONS: RLQ pn; neg quant hcg 12/06 CONTRAST: Omni 300 100ml TECHNIQUE: After the administration of intravenous contrast, 5 mm thick sections acquired from the diaphragms to the symphysis. 5 mm thick coronal and sagittal reformats were acquired. For radiation dose reducti on, the following was used: automated exposure control, adjustment of mA and/or kV according to katherine ent size. COMPARISON: CT abdomen/pelvis 02/26/2022. FINDINGS: Image quality: Excellent. ABDOMEN: Lung bases: Lung bases are clear. Heart size is normal. Solid organs: Liver and spleen are normal in size and enhancement. Gallbladder is mildly distended. No radiopaque gallstones. Biliary system is non dilated. Pancreas enhances normally. No adrenal n odules. Kidneys demonstrate normal size and enhancement, without hydronephrosis. 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 No signs of bowel ob struction. Fluid material is seen within the descending colon. Appendix is filled with fluid. The jeremiah ority of the appendix is within normal limits in size, although the more proximal portion may measure up to 7-8 mm in diameter on coronal images. There is possible subtle edema within the right lower qu adrant mesentery. No ascites or pneumoperitoneum. Nodes and vessels: No retroperitoneal or mesenteric adenopathy by size criteria. Aorta and inferior vena cava are normal in size. Miscellaneous: No ventral hernias. PELVIS: Genitourinary: Bladder wall thickness is normal. Peripherally enhancing right ovarian corpus luteal cyst. Trace free fluid in the pelvis is most likely physiologic. Miscellaneous: No inguinal hernias or adenopathy. Bones: No suspicious bony lesions. No vertebral body compression fractures. Mild degenerative tello ges are seen in the spine. IMPRESSION: 1.Borderline size of the appendix with possible trace edema in the periappendiceal fat. Findings are equivocal, but early or mild acute appendicitis is not excluded. No ascites or pneumoperitoneum. 2.Right ovarian corpus luteal cyst. Trace free fluid in the pelvis is most likely physiologic. 3.Mildly distended gallbladder without radiopaque gallstones. Recommend correlation with clinical and laboratory findings. Gallbladder ultrasound could be performed for further evaluation if indicated c linically. There is no significant discrepancy when compared with the preliminary overnight report. Reviewed by: Jone Aquino MD on 12/14/2022 8:10 AM PST Approved by: Jone Aquino MD on 12/14/2022 8:10 AM PST Station ID: [id number]
--- NOTE | 2022-12-14 15:50 | CONSULTATION NOTE ---
Referring Provider Name of Referring Provider:: Iman Roque MD Consult Date: 12/14/22 Chief Complaint - Chief Complaint Chief Complaint: RLQ pain History of Present Illness - Admitted From Admitted From:: Emergency Department Room 9 - History Obtained From Records Reviewed: Yes History obtained from: Patient and chart Exam Limitations: None - History of Present Illness HPI Comment/Other: This patient is an exceedingly pleasant 27-year-old female who is known to me who I am evaluating at the request of Dr. Roque to help rule out or rule in appendicitis. The patient states that her symptoms started abruptly yesterday evening. It started in her pelvis and it felt like someone was stabbing her. The pain was described as lancinating. It was present a little bit more on the right-hand side than on the left-hand side. It was worsened by motion. There was some nausea but there was no vomiting. It also hurts to have a bowel movement, pass gas, or urinate. She attempted to help the pain with a hot bath. It seemed to ameliorate the pain a bit but it did not make it go completely away. Her significant other made her a grilled cheese sandwich and I believe some soup which she was able to keep down. 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 : reports: None HEENT: reports: None Psych: reports: Depression Musculoskeletal: reports: Chronic back pain Derm: reports: None MRSA Hx?: No Other Past Medical History: PCOS - Past Surgical History General: reports: Gastric surgery Ortho: reports: Other - POLST Patient has POLST: No Meds/Allgy - Home Medications Home Medications: Ambulatory Orders Medication Instructions Recorded Confirmed Sertraline [Zoloft] 100 mg PO DAILY 02/26/22 12/14/22 Topiramate 50 mg PO DAILY 02/26/22 12/14/22 Multivitamin 1 tab PO DAILY 12/14/22 12/14/22 Omeprazole Magnesium 20 mg PO DAILY 12/14/22 12/14/22 metFORMIN [Glucophage] 500 mg PO BID 12/14/22 12/14/22 - Allergies Allergies/Adverse Reactions: Allergies Allergy/AdvReac Type Severity Reaction Status Date / Time NSAIDS (Non-Steroidal AdvReac Unknown Verified 12/14/22 05:04 Anti-Inflamma phenytoin [From Dilantin] AdvReac Hives Verified 12/14/22 05:04 Review of Systems - Constitutional Constitutional: reports: Malaise - Eyes Eyes: denies: Pain - Ears, Nose & Throat Ears, Nose & Throat: denies: Ear pain - Cardiovascular Cariovascular: denies: Irregular heart rate, Chest pain - Respiratory Respiratory: denies: Cough, Hemoptysis - Gastrointestinal Gastrointestinal: reports: Abdominal pain, Nausea, Other (Pain with bowel movement.). denies: Vomiting, Bile emesis, Ben blood emesis, Coffee grounds emesis - Genitourinary Genitourinary: reports: Other (Pain with urination.) - Musculoskeletal Musculoskeletal: reports: Back pain - Neurological Neurological: denies: General weakness, Focal weakness Exam - Vital Signs Reviewed Vital Signs: Yes Vital Signs: Vital Signs x48h Pulse Resp BP Pulse Ox 12/14/22 15:00 66 14 133/89 H 100 12/14/22 13:00 60 16 113/76 98 12/14/22 11:00 55 L 16 94/54 L 99 12/14/22 09:30 50 L 12 104/54 L 99 12/14/22 08:33 100/67 12/14/22 08:00 68 14 95/52 L 97 - Physical Exam General Appearance: positive: No acute distress Eyes Bilateral: positive: No lid inflammation, Conjunctivae nml, No scleral icterus ENT: positive: No signs of dehydration Neck: positive: Trachea midline. negative: Carotid bruit Respiratory: positive: Chest non-tender, No respiratory distress, Breath sounds nml Cardiovascular: positive: Regular rate & rhythm Abdomen: positive: Nml bowel sounds, Tenderness (More on the right side than on the left side. Negative Rovsing sign. Negative obturator sign. Negative psoas sign. Bowel sounds present and normal.) Skin: positive: Color nml, Warm, Dry Extremities: positive: Non-tender, Nml appearance Neurologic/Psychiatric: positive: Oriented x3, Motor nml, Sensation nml, Mood/affect nml Conclusion/Plan - Lab Results Lab results reviewed: Yes Fish Bones: 12/14/22 04:50 12/14/22 04:50 - Diagnostic Imaging Results Diagnostic Imaging Results: positive: Final report reviewed - Other Other Results/Comments: I reviewed the CT scan in person and with the patient. The CT scan is equivocal with regards to whether not this is appendicitis. There is a question as to whether or not there is some mild inflammation around the appendix. Karlosa lly the patient has had a history of ovarian cysts and there clearly is a cyst here with some fluid in the pelvis. The white count is elevated to 15 but asked whether or not this represents an inflammatory process versus an infectious process I think this is up for debate. The patient has no fever. She does not appear toxic. The CT report is equivocal for appendicitis and certainly no appendicolith was seen. The story of an abrupt onset of abdominal pain primarily in the pelvis especially in a patient who is known to have ovarian cysts speaks more to me we ruptured ovarian cyst rather than appendicitis. I explained that her discomfort will be present for days and will slowly go away but there is no wonderful treatment for this. Antibiotics may be helpful especially if we still consider appendicitis in the differential. If it is a ruptured ovarian cyst I doubt they will help at all. I expect that this will resolve with the passage of time but if it does not then I have asked that she come back to the emergency department and reevaluated I can be called. A short course of opiate pain medication may be helpful for the patient to deal with this pain and the patient should certainly not return to work until this has completely resolved. I have asked both the patient and her significant other to contact me if they have any further surgical questions and or concerns and they stated that they would. I would like to thank Dr. Roque very much for the opportunity to participate in this patient's care. CPT 27496
--- NOTE | 2022-12-14 15:59 | ED Physician Documentation ---
ED Addendum - Addendum Addendum: 12/14/22 15:56 Dr. Luna, general surgery, consulted on the patient. He recommends discharging to home. Placing on pain medication and antibiotics. Patient counseled regarding signs and symptoms for which I believe and urgent re- evaluation would be necessary. Patient with good understanding of and agreement to plan and is comfortable going home at this time This document was made in part using voice recognition software. While efforts are made to proofread this document, sound alike and grammatical errors may occur. Departure - Departure Disposition: 01 Home, Self Care Clinical Impression: Abdominal pain Qualifiers: Abdominal location: unspecified location Qualified Code(s): R10.9 - Unspecified abdominal pain Condition: Stable Instructions: ED Abdominal Pain Female Non-Specific Abdominal Pain, ED Abdominal Pain Appendx Poss Follow-Up: SINGH ALCARAZ ARNP [Primary Care Provider] - Prescriptions: Amox/Clav 875/125 [Augmentin] 1 tab PO Q12H #20 tablet Oxycodone HCl/Acetaminophen [Percocet 5-325 mg Tablet] 1 - 2 each PO Q6H PRN #14 tablet MDD 6 tabs PRN Reason: pain Metoclopramide [Reglan] 10 mg PO Q6H PRN #20 tablet PRN Reason: Nausea / Vomiting Comments: Your prescriptions were sent to [facility] in [place]. Please follow-up with your doctor as needed for further care. If your symptoms worsen or fail to improve as expected, please return for repeat evaluation. Your CT scan did show a possible early appendicitis. Please take all antibiotics until gone. I am prescribing a short course of narcotic pain medication for you. These are potentially dangerous and addictive medications that should be used carefully. These medications may constipate you. Take an ymbb-[id number] stool softener (docusate) twice daily with plenty of water while taking these medications. If y ou go 24 hours without a bowel movement, take [id number] miralax, per package instructions. Do not drink or drive while taking these medications. If you received narcotic or sedating medications while in the emergency department, do not drive for 24 hours. Store this medication in a safe, secure place and out of reach of children. It is a violation of federal law to give or sell this medication to another person or to use in a manner other than prescribed. The ED will not refill narcotic prescriptions, including prescriptions lost or stolen. To dispose of unwanted medications: 1. [facility] at [address] in [place] has a medication drop box. They accept prescription medications (in pill form) Saturday through Saturday 9:00 a.m. to 5:00 p.m. 2. [facility] accepts prescription medications (in pill form only) for disposal year round. Call for more information. 3. Contact the [facility] for the next [facility] sponsored prescription drug collection event. , [phone], or [phone];
[2022-12-14 16:15] VITALS: BP 124/79
== END 2022-12-14 16:13 | disposition home or self-care (01) ==
LOC: ED 04:41
DX: R10.31 Right lower quadrant pain (principal); I10 Essential (primary) hypertension; Z79.899 Other long term (current) drug therapy; Z79.84 Long term (current) use of oral hypoglycemic drugs
CPT/HCPCS: 36415; 74177; 80053; 81003; 83690; 85025; 87635; 96365; 96375; 96376; 99284; J1170; Q9967; 81001; 87086

== ENCOUNTER 2022-12-18 14:16 | Outpatient (CLI) | payer OTHER | END 2022-12-18 14:17 | disposition home or self-care (01) | LOC: LAB 14:16 | PROVIDERS: ATTEND Nurse Practitioner | DX: Z32.01 Encounter for pregnancy test, result positive (principal) | CPT/HCPCS: 36415; 84702; 84703 ==

== ENCOUNTER 2022-12-20 13:36 | Outpatient (CLI) | payer OTHER | END 2022-12-20 13:37 | disposition home or self-care (01) | LOC: LAB 13:36 | PROVIDERS: ATTEND Nurse Practitioner | DX: Z32.01 Encounter for pregnancy test, result positive (principal) | CPT/HCPCS: 36415; 84702 ==

== ENCOUNTER 2022-12-27 08:00 | Outpatient (CLI) | payer OTHER ==
[2022-12-27 10:52] LABS: BILIRUBIN,URINE NEGATIVE (NEGATIVE); GLUCOSE, URINE (UA) NEGATIVE (NEGATIVE); KETONES,URINE (UA) NEGATIVE (NEGATIVE); LEUKOCYTE ESTERASE, URINE NEGATIVE (NEGATIVE); NITRITE,URINE NEGATIVE (NEGATIVE); OCCULT BLOOD,URINE NEGATIVE (NEGATIVE); PROTEIN,URINE NEGATIVE (NEGATIVE); UROBILINOGEN,URINE 0.2 (NORMAL) E.U./dL (NORMAL)
[2022-12-27 10:54] LABS: CLARITY,URINE CLEAR (CLEAR)
[2022-12-27 11:20] LABS: BACTERIA,URINE Few /HPF (None Seen); RBC,URINE 0-5 /HPF (0-5); SQUAMOUS EPITHELIAL CELL,UR FEW Squamous (<= Few); WBC,URINE 0-3 /HPF (0-5)
== END 2022-12-27 23:59 | disposition home or self-care (01) ==
LOC: LAB.WC 08:00
PROVIDERS: ATTEND Nurse Practitioner
DX: Z34.90 Encounter for supervision of normal pregnancy, unspecified, unspecified trimester (principal)
CPT/HCPCS: 81001; 87086

== ENCOUNTER 2022-12-27 16:26 | Outpatient (CLI) | payer OTHER ==
[2022-12-27 17:15] LABS: BASOPHILS % (AUTO) 0.3 %; EOSINOPHILS # (AUTO) 0.2 10^3/uL (0.0-0.7); EOSINOPHILS % (AUTO) 1.7 %; HGB - HEMOGLOBIN 12.8 g/dL (12.0-16.0); LYMPHOCYTES # (AUTO) 3.2 10^3/uL (1.5-3.5); LYMPHOCYTES % (AUTO) 35.6 %; MEAN CORPUSCULAR HEMOGLOBIN 31.8 pg (27.0-31.0); MEAN CORPUSCULAR HGB CONC 32.8 g/dL (32.0-36.0); MEAN CORPUSCULAR VOLUME 96.8 fL (81.0-99.0); MEAN PLATELET VOLUME 10.4 fL (7.9-10.8); MONOCYTES # (AUTO) 0.6 10^3/uL (0.0-1.0); MONOCYTES % (AUTO) 6.3 %; NEUTROPHILS % (AUTO) 55.9 %; PLT - PLATELET COUNT 314 10^3/uL (130-450); RED BLOOD COUNT 4.03 10^6/uL (4.20-5.40); RED CELL DISTRIBUTION WIDTH 12.7 % (12.0-15.0); WHITE BLOOD COUNT 8.9 x10^3/uL (4.8-10.8)
[2022-12-29 04:09] LABS: RPR Non Reactive (Non Reactive)
[2022-12-29 07:09] LABS: HBsAG SCREEN Negative (Negative); HCV AB Non Reactive (Non Reactive)
[2022-12-29 10:09] LABS: VARICELLA-ZOSTER AB IGG 962 index (Immune >165)
[2022-12-30 10:07] LABS: HIV SCREEN 4TH GENERATION Non Reactive (Non Reactive)
== END 2022-12-27 16:27 | disposition home or self-care (01) ==
LOC: LAB 16:26
PROVIDERS: ATTEND Nurse Practitioner
DX: Z34.90 Encounter for supervision of normal pregnancy, unspecified, unspecified trimester (principal)
CPT/HCPCS: 36415; 81001; 85025; 86592; 86762; 86787; 86803; 86850; 86900; 86901; 87086; 87340; 87389

== ENCOUNTER 2023-01-21 13:10 | Outpatient (CLI) | payer OTHER ==
--- NOTE | 2023-01-21 15:16 | Ultrasound Report ---
PROCEDURE: OB First Trimester w/TV INDICATIONS: VAGINAL BLEEDING OUTSIDE/PRIOR DATING DATA: Last menstrual period (LMP): 10/28/2022. LMP-based estimated date of delivery (JOHN): 08/04/2023. First dating scan (date and location): 01/21/2023. Estimated date of delivery (JOHN) from first dating scan: 08/04/2023. The below data below was generated using the ultrasound JOHN of 09/16/2023 TECHNIQUE: Real-time scanning was performed of the fetus and maternal pelvic organs, with image documentation. Endovaginal scanning was also performed to better visualize the fetus and maternal ovaries. COMPARISON: None FINDINGS: Embryo: An intrauterine is identified. Possible cardiac activity is seen, but the tech was unable to measure with M mode ultrasound. Heart rate: Unable to measure. The right ovary has a hemorrhagic cyst versus corpus luteal cyst measuring 1.5 cm. There is fluid in the cul-de-sac. Measurement variability in dating: +/- 4 weeks by LMP, +/- 7 days by mean sac diameter (use before 6 weeks gestation if crown-rump length not able to be measured), +/- 5 days by crown-rump length (6-12 weeks gestation). IMPRESSION: Live intrauterine . Heart rate was difficult to measure. Recommend follow-up jean palma. Reviewed by: Jean Claude Villalobos on 01/21/2023 3:15 PM PDT Approved by: Jean Claude Villalobos on 01/21/2023 3:15 PM PDT Station ID: [id number]
== END 2023-01-21 13:11 | disposition home or self-care (01) ==
LOC: LAB 13:10
PROVIDERS: ATTEND Nurse Practitioner
DX: O20.9 Hemorrhage in early pregnancy, unspecified (principal)
CPT/HCPCS: 36415; 84702

== ENCOUNTER 2023-01-21 19:45 | Emergency (ER) | payer OTHER ==
[2023-01-21] MEDS ORDERED: SODIUM CHLORIDE 0.9% 2,000 ML IV STA (20:03)
[2023-01-21 21:22] LABS: BILIRUBIN,URINE NEGATIVE (NEGATIVE); GLUCOSE, URINE (UA) NEGATIVE (NEGATIVE); KETONES,URINE (UA) NEGATIVE (NEGATIVE); LEUKOCYTE ESTERASE, URINE NEGATIVE (NEGATIVE); NITRITE,URINE NEGATIVE (NEGATIVE); OCCULT BLOOD,URINE LARGE (NEGATIVE); PH,URINE 5.5 PH (5.0-7.5); PROTEIN,URINE TRACE mg/dL (NEGATIVE); UROBILINOGEN,URINE 0.2 (NORMAL) E.U./dL (NORMAL)
[2023-01-21 21:27] LABS: CLARITY,URINE HAZY (CLEAR)
[2023-01-21 21:33] VITALS: BP 137/90
[2023-01-21 22:03] LABS: BACTERIA,URINE Rare /HPF (None Seen); RBC,URINE TNTC /HPF (0-5); SQUAMOUS EPITHELIAL CELL,UR FEW Squamous (<= Few); WBC,URINE 0-3 /HPF (0-5)
[2023-01-21 22:04] LABS: CRYSTALS,URINE 0-2 Uric Acid /LPF
[2023-01-21 22:05] LABS: BASOPHILS % (AUTO) 0.5 %; HCT - HEMATOCRIT 37.8 % (37.0-47.0); HGB - HEMOGLOBIN 12.3 g/dL (12.0-16.0); LYMPHOCYTES % (AUTO) 53.6 %; MEAN CORPUSCULAR HEMOGLOBIN 31.8 pg (27.0-31.0); MEAN CORPUSCULAR HGB CONC 32.5 g/dL (32.0-36.0); MEAN CORPUSCULAR VOLUME 97.7 fL (81.0-99.0); MEAN PLATELET VOLUME 10.2 fL (7.9-10.8); MONOCYTES % (AUTO) 7.1 %; NEUTROPHILS % (AUTO) 37.6 %; PLT - PLATELET COUNT 234 10^3/uL (130-450); RED BLOOD COUNT 3.87 10^6/uL (4.20-5.40); RED CELL DISTRIBUTION WIDTH 12.1 % (12.0-15.0); WHITE BLOOD COUNT 6.2 x10^3/uL (4.8-10.8)
--- NOTE | 2023-01-21 22:06 | ED Physician Documentation ---
History of Present Illness - Stated complaint Stated Complaint: DEHYDRATION/GI - Chief complaint Chief Complaint: Abd Pain - History obtained from History obtained from: Patient - History of Present Illness Pain level max: 0 Pain level now: 0 - Additonal information Additional information: 27-year-old female presents to the emergency department with diarrhea for the past 4 days. She is approximately 5 to 6 weeks . No vomiting. She has a history of gastric bypass. No fevers. She is feeling dehydrated today. Requesting IV fluids. Review of Systems Constitutional: denies: Fever, Chills Respiratory: denies: Cough GI: denies: Vomiting, Diarrhea : reports: Other (Patient did have vaginal bleeding recently, had a stat ultrasound with her OB yesterday and is scheduled to have a repeat hCG tomorrow.). 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 HEENT: None Psych: Depression Musculoskeletal: Chronic back pain Derm: None - Past Surgical History Past Surgical History: Yes General: Gastric surgery Ortho: Other - Present Medications Home Medications: Ambulatory Orders Medication Instructions Recorded Confirmed Sertraline [Zoloft] 100 mg PO DAILY 02/26/22 12/14/22 Topiramate 50 mg PO DAILY 02/26/22 12/14/22 Amox/Clav 875/125 [Augmentin] 1 tab PO Q12H #20 tablet 12/14/22 Metoclopramide [Reglan] 10 mg PO Q6H PRN #20 tablet 12/14/22 Multivitamin 1 tab PO DAILY 12/14/22 12/14/22 Omeprazole Magnesium 20 mg PO DAILY 12/14/22 12/14/22 Oxycodone HCl/Acetaminophen 1 - 2 each PO Q6H PRN #14 tablet 12/14/22 [Percocet 5-325 mg Tablet] MDD 6 tabs metFORMIN [Glucophage] 500 mg PO BID 12/14/22 12/14/22 - Allergies Allergies/Adverse Reactions: Allergies Allergy/AdvReac Type Severity Reaction Status Date / Time NSAIDS (Non-Steroidal AdvReac Unknown Verified 01/21/23 19:48 Anti-Inflamma phenytoin [From Dilantin] AdvReac Hives Verified 01/21/23 19:48 - Social History Does the pt smoke?: No Smoking Status: Never smoker Does the pt drink ETOH?: Yes Does the pt have substance abuse?: No - Immunizations Immunizations are current?: Yes - POLST Patient has POLST: No PD ED PE NORMAL - Vitals Vital signs reviewed: Yes - General General: Alert and oriented X 3, No acute distress, Well developed/nourished - HEENT HEENT: PERRL, Other (Dry lips and tongue) - Neck Neck: Supple, no meningeal sign - Cardiac Cardiac: RRR, Strong equal pulses - Respiratory Respiratory: No respiratory distress, Clear bilaterally - Abdomen Abdomen: Soft, Non tender, Non distended - Derm Derm: Warm and dry - Neuro Neuro: Alert and oriented X 3 - Psych Psych: Normal mood, Normal affect Results - Vitals Vitals: Vital Signs - 24 hr 01/21/23 01/21/23 19:48 21:32 Temperature 36.5 C Heart Rate 83 63 Respiratory 16 16 Rate Blood Pressure 142/69 H 137/90 H O2 Saturation 98 100 Oxygen O2 Source Room air - Labs Labs: Laboratory Tests 01/21/23 01/21/23 01/21/23 09:45 20:03 20:08 WBC 6.2 RBC 3.87 L Hgb 12.3 Hct 37.8 MCV 97.7 MCH 31.8 H MCHC 32.5 RDW 12.1 Plt Count 234 MPV 10.2 Neut # (Auto) Not Reportable Lymph # (Auto) Not Reportable [place] # (Auto) Not Reportable Eos # (Auto) Not Reportable Baso # (Auto) Not Reportable Absolute Nucleated RBC Not Reportable Total Counted 100 Band Neuts % (Manual) 1 Reactive Lymphs % (Man) 9 Abnorm Lymph % (Manual) 7 Metamyelocytes % 1 H Nucleated RBC % Not Reportable Neutrophils # (Manual) 2.9 Lymphocytes # (Manual) 3.0 Monocytes # (Manual) 0.2 Eosinophils # (Manual) 0.1 Basophils # (Manual) 0.0 Differential Comment MANUAL DIFFERENTIAL Manual Slide Review Indicated WBC Morphology 1+ TOXIC GRANULATION Platelet Estimate NORMAL (130-450,000) Platelet Morphology NORMAL APPEARANCE RBC Morph Micro Appear NORMAL APPEARANCE Sodium 139 Potassium 3.7 Chloride 108 Carbon Dioxide 26 Anion Gap 5.0 L BUN 10 Creatinine 0.5 Estimated GFR (MDRD) 147 Glucose 83 Calcium 8.1 L Phosphorus 4.3 Magnesium 1.9 Total Bilirubin 0.3 AST 33 ALT 33 Alkaline Phosphatase 88 Total Protein 6.9 Albumin 3.7 Globulin 3.2 Albumin/Globulin Ratio 1.2 Lipase 27 Urine Color DARK YELLOW Urine Clarity HAZY Urine pH 5.5 Ur Specific [place] >=1.030 H Urine Protein TRACE Urine Glucose (UA) NEGATIVE Urine Ketones NEGATIVE Urine Occult Blood LARGE H Urine Nitrite NEGATIVE Urine Bilirubin NEGATIVE Urine Urobilinogen 0.2 (NORMAL) Ur Leukocyte Esterase NEGATIVE Urine RBC TNTC H Urine WBC 0-3 Ur Squamous Epith Cells FEW Squamous Urine Crystals 0-2 Uric Acid Urine Bacteria Rare Ur Microscopic Review INDICATED Urine Culture Comments NOT INDICATED PD Medical Decision Making - ED course Complexity details: reviewed results, re-evaluated patient, considered differential, d/w patient ED course: Patient with what appears to be a viral enteritis. Urinalysis is consistent with dehydration. She was given 2 L of IV fluid. Patient feels much better. She is already being followed by OB for the vaginal bleeding affecting . No significant lab abnormalities. We will continue supportive care and have her follow-up with her doctor. No recent antibiotics or travel. No indication of C. difficile or need for stool culture at this time. 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 Patient counseled regarding signs and symptoms for which I believe and urgent re-evaluation would be necessary. Patient with good understanding of and agreement to plan and is comfortable going home at this time This document was made in part using voice recognition software. While efforts are made to proofread this document, sound alike and grammatical errors may occur. Departure - Departure Disposition: 01 Home, Self Care Clinical Impression: Dehydration Diarrhea Qualifiers: Diarrhea type: unspecified type Qualified Code(s): R19.7 - Diarrhea, unspecified Condition: Good Instructions: ED Dehydration, ED Diarrhea Viral Follow-Up: your,doctor in 3-5 days if not better [Other] Comments: Drink plenty of fluids and rest. The diarrhea should improve over the next 1 to 3 days. Please return if you worsen. Forms: Activity restrictions Discharge Date/Time: 01/21/23 22:41
[2023-01-21 22:08] LABS: SLIDE REVIEW? Indicated
[2023-01-21 22:12] LABS: ALBUMIN 3.7 g/dL (3.2-5.5); ALBUMIN/GLOBULIN RATIO 1.2 (1.0-2.2); BILIRUBIN,TOTAL 0.3 mg/dL (0.2-1.0); CALCIUM 8.1 mg/dL (8.5-10.3); CREATININE 0.5 mg/dL (0.4-1.0); MAGNESIUM 1.9 mg/dL (1.7-2.8); PHOSPHORUS 4.3 mg/dL (2.5-4.6); POTASSIUM 3.7 mmol/L (3.5-5.0); TOTAL PROTEIN 6.9 g/dL (6.7-8.2)
[2023-01-21 22:38] LABS: ABNORMAL LYMPHS % (MANUAL) 7 %; BAND NEUTROPHILS % (MANUAL) 1 %; EOSINOPHILS # (MANUAL) 0.1 10^3/uL (0-0.7); LYMPHOCYTES % (MANUAL) 32 %; METAMYELOCYTES % (MANUAL) 1 %; MONOCYTES # (MANUAL) 0.2 10^3/uL (0.0-1.0); NEUTROPHILS # (MANUAL) 2.9 10^3/uL (1.5-6.6); REACTIVE LYMPHS % (MANUAL) 9 %
[2023-01-21 22:42] LABS: PLATELET ESTIMATE, MANUAL NORMAL (130-450,000) (NORMAL); PLATELET MORPHOLOGY NORMAL APPEARANCE (NORMAL); RBC MORPHOLOGY (MULTIPLE) NORMAL APPEARANCE (NORMAL)
[2023-01-21 22:43] LABS: DIFFERENTIAL COMMENT MANUAL DIFFERENTIAL; WBC MORPHOLOGY (MULTIPLE) 1+ TOXIC GRANULATION (NORMAL)
== END 2023-01-21 22:41 | disposition home or self-care (01) ==
LOC: ED 19:45
DX: O26.891 Other specified pregnancy related conditions, first trimester (principal); Z3A.01 Less than 8 weeks gestation of pregnancy; E86.0 Dehydration; R19.7 Diarrhea, unspecified; O16.1 Unspecified maternal hypertension, first trimester
CPT/HCPCS: 36415; 80053; 81001; 81003; 83690; 83735; 84100; 84702; 85025; 87086; 99283; 99284

== ENCOUNTER 2023-01-23 08:22 | Outpatient (CLI) | payer OTHER | END 2023-01-23 08:23 | disposition home or self-care (01) | LOC: LAB 08:22 | PROVIDERS: ATTEND Nurse Practitioner | DX: O20.9 Hemorrhage in early pregnancy, unspecified (principal) | CPT/HCPCS: 36415; 84702 ==

== ENCOUNTER 2023-01-24 09:55 | Day surgery (SDC) | payer OTHER ==
[~2023-01-24 09:55] MED LIST changes: -GADOBUTROL 15 MMOL/15 ML VIAL ONE; +LIDOCAINE MPF 2%-EPI 1:200000 20 ML VIAL ONE
== END 2023-01-24 09:56 | disposition home or self-care (01) ==
LOC: SDS 09:55
PROVIDERS: ATTEND Obstetrics & Gynecology
DX: Z53.9 Procedure and treatment not carried out, unspecified reason (principal)

== ENCOUNTER 2023-01-30 18:36 | Outpatient (CLI) | payer OTHER | END 2023-01-30 18:37 | disposition home or self-care (01) | LOC: LAB 18:36 | PROVIDERS: ATTEND Nurse Practitioner | DX: O03.1 Delayed or excessive hemorrhage following incomplete spontaneous abortion (principal) | CPT/HCPCS: 36415; 84702 ==

== ENCOUNTER 2023-02-10 17:42 | Outpatient (CLI) | payer OTHER | END 2023-02-10 17:43 | disposition home or self-care (01) | LOC: LAB 17:42 | PROVIDERS: ATTEND Nurse Practitioner | DX: O03.1 Delayed or excessive hemorrhage following incomplete spontaneous abortion (principal) | CPT/HCPCS: 36415; 84702 ==

== ENCOUNTER 2023-03-20 01:10 | Emergency (ER) | payer OTHER ==
--- NOTE | 2023-03-20 02:27 | ED Physician Documentation ---
PD HPI ABD PAIN - Stated complaint Stated Complaint: ABD PX - Chief complaint Chief Complaint: Abd Pain - History obtained from History obtained from: Patient - Additional information Additional information: HPI from patient. Patient c/o abdominal pain , onset approximately midnight shortly after coming home from work and eating a meal. Pain is across upper abdomen and associated with nausea but no vomiting. Pain radiates up chest to jaw. Patient has had alondra-en-Y gastric bypass. Denies h/o similar abdominal pain. Review of Systems Constitutional: denies: Fever Cardiac: reports: Reviewed and negative Respiratory: reports: Reviewed and negative GI: reports: Abdominal Pain, Nausea. 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 HEENT: None Psych: Depression Musculoskeletal: Chronic back pain Derm: None - Past Surgical History Past Surgical History: Yes General: Gastric surgery Ortho: Other - Present Medications Home Medications: Ambulatory Orders Medication Instructions Recorded Confirmed Sertraline [Zoloft] 100 mg PO DAILY 02/26/22 01/23/23 Multivitamin 1 tab PO DAILY 12/14/22 01/23/23 metFORMIN [Glucophage] 500 mg PO BID 12/14/22 01/23/23 HYDROcod/ACETAM 5/325 [[place] 5/325] 1 - 2 tablet PO Q6H PRN #14 tablet 03/20/23 Ondansetron Odt [Zofran Odt] 4 mg TL Q6H PRN #10 tablet 03/20/23 - Allergies Allergies/Adverse Reactions: Allergies Allergy/AdvReac Type Severity Reaction Status Date / Time NSAIDS (Non-Steroidal AdvReac Unknown Verified 03/20/23 01:40 Anti-Inflamma phenytoin [From Dilantin] AdvReac Hives Verified 03/20/23 01:40 - Social History Does the pt smoke?: No Smoking Status: Never smoker Does the pt drink ETOH?: Yes Does the pt have substance abuse?: No - Immunizations Immunizations are current?: Yes - POLST Patient has POLST: No PD ED PE NORMAL - Vitals Vital signs reviewed: Yes - General General: Alert and oriented X 3, No acute distress, Well developed/nourished - HEENT HEENT: Moist mucous membranes - Cardiac Cardiac: RRR, No murmur - Respiratory Respiratory: No respiratory distress, Clear bilaterally - Abdomen Abdomen: Soft, Non distended, Other (mild/moderate TTP across upper abdomen, most pronounced in epigastrium. no rebound nor guarding) - Back Back: No CVA TTP Results - Vitals Vitals: Oxygen O2 Source Room air - EKG (time done) No standard instances EKG releavant findings:: EKG personally interpreted by author of this note. Relevant findings are: Rate: Rate (enter#) (55) Rhythm: NSR [place]: Normal Intervals: Normal [place] QRS: Normal Ischemia: Normal ST segments - Labs Labs: Laboratory Tests 03/20/23 03/20/23 03/20/23 01:53 01:53 03:23 WBC 7.7 RBC 4.18 L Hgb 13.4 Hct 40.8 MCV 97.6 MCH 32.1 H MCHC 32.8 RDW 12.1 Plt Count 272 MPV 10.4 Neut # (Auto) 3.0 Lymph # (Auto) 3.9 H [place] # (Auto) 0.6 Eos # (Auto) 0.2 Baso # (Auto) 0.0 Absolute Nucleated RBC 0.00 Nucleated RBC % 0.0 Sodium Potassium Chloride Carbon Dioxide Anion Gap BUN Creatinine Estimated GFR (MDRD) Glucose Calcium Total Bilirubin AST ALT Alkaline Phosphatase Total Protein Albumin Globulin Albumin/Globulin Ratio Lipase Urine Color YELLOW Urine Clarity CLEAR Urine pH 7.0 Ur Specific [place] 1.010 Urine Protein NEGATIVE Urine Glucose (UA) NEGATIVE Urine Ketones NEGATIVE Urine Occult Blood NEGATIVE Urine Nitrite NEGATIVE Urine Bilirubin NEGATIVE Urine Urobilinogen 0.2 (NORMAL) Ur Leukocyte Esterase NEGATIVE Ur Microscopic Review NOT INDICATED Urine Culture Comments NOT INDICATED Urine HCG, Qual NEGATIVE 03/20/23 03:23 WBC RBC Hgb Hct MCV MCH MCHC RDW Plt Count MPV Neut # (Auto) Lymph # (Auto) [place] # (Auto) Eos # (Auto) Baso # (Auto) Absolute Nucleated RBC Nucleated RBC % Sodium 139 Potassium 3.8 Chloride 106 Carbon Dioxide 24 Anion Gap 9.0 BUN 11 Creatinine 0.5 Estimated GFR (MDRD) 147 Glucose 83 Calcium 8.7 Total Bilirubin 0.5 AST 40 ALT 42 Alkaline Phosphatase 113 Total Protein 7.4 Albumin 3.9 Globulin 3.5 Albumin/Globulin Ratio 1.1 Lipase 30 Urine Color Urine Clarity Urine pH Ur Specific [place] Urine Protein Urine Glucose (UA) Urine Ketones Urine Occult Blood Urine Nitrite Urine Bilirubin Urine Urobilinogen Ur Leukocyte Esterase Ur Microscopic Review Urine Culture Comments Urine HCG, Qual - Rads (name of study) CT A/P with PO and IV contrast Relevant Findings:: Prelim report reviewed, See rad report PD Medical Decision Making - ED course Complexity details: reviewed results, re-evaluated patient, considered differential, d/w patient ED course: Tests ordered and results reviewed by me: CBC, ER abdominal panel, UA, urine HCG. The blood tests and UA are normal and UHCG is negative. CT A/P interpreted by radiologist as "distended gallbladder without calcified stones" and right ovarian cyst measuring 2.6 cm. Patient reports adequate relief of symptoms with morphine sulfate IV (4mg doses, total of 8mg), zofran IV (4 mg doses, total of 8mg), and one liter NS. The etiology of patient's symptoms is not apparent at this time. Doubt cholecystitis; distended GB on CT but normal WBC, normal LFTs and no inflammatory changes on CT (with IV contrast). SBO including internal hernia considered but essentially ruled out with the CT A/P with IV and PO contrast. Results d/w patient, return precautions reviewed. She is e-prescribed vicodin and ondansetron. I reviewed this patient's medication/prescription history and there are no concerning findings nor patterns regarding controlled substance prescriptions. Departure - Departure Disposition: 01 Home, Self Care Clinical Impression: Abdominal pain Qualifiers: Abdominal location: upper abdomen, unspecified Qualified Code(s): R10.10 - Upper abdominal pain, unspecified Condition: Good Instructions: ED Abdominal Pain Female Non-Specific Abdominal Pain Prescriptions: HYDROcod/ACETAM 5/325 [[place] 5/325] 1 - 2 tablet PO Q6H PRN #14 tablet PRN Reason: Pain Ondansetron Odt [Zofran Odt] 4 mg TL Q6H PRN #10 tablet PRN Reason: Nausea / Vomiting Comments: There were no concerning or diagnostic findings on tonight's tests including blood tests, urinalysis. The only finding of note on the CT scan was a distended gallbladder; however, there do not appear to be any gallstones. This is likely an incidental finding. As we discussed, there was also a small, right-sided ovarian cyst; this is not correlating with the location of your pain, and you have indicated that this is not a new finding. The cause of your pain is not apparent at this time. Follow-up with your primary care provider, next available appointment, for reevaluation. A prescription for Vicodin (narcotic/opiate pain medication) is being provided. Discharge Date/Time: 03/20/23 08:16
[2023-03-20 03:12] LABS: BILIRUBIN,URINE NEGATIVE (NEGATIVE); GLUCOSE, URINE (UA) NEGATIVE (NEGATIVE); KETONES,URINE (UA) NEGATIVE (NEGATIVE); LEUKOCYTE ESTERASE, URINE NEGATIVE (NEGATIVE); NITRITE,URINE NEGATIVE (NEGATIVE); OCCULT BLOOD,URINE NEGATIVE (NEGATIVE); PROTEIN,URINE NEGATIVE (NEGATIVE); UROBILINOGEN,URINE 0.2 (NORMAL) E.U./dL (NORMAL)
[2023-03-20 03:13] LABS: CLARITY,URINE CLEAR (CLEAR)
[2023-03-20 03:32] LABS: BASOPHILS % (AUTO) 0.5 %; EOSINOPHILS # (AUTO) 0.2 10^3/uL (0.0-0.7); EOSINOPHILS % (AUTO) 2.7 %; HCT - HEMATOCRIT 40.8 % (37.0-47.0); HGB - HEMOGLOBIN 13.4 g/dL (12.0-16.0); LYMPHOCYTES # (AUTO) 3.9 10^3/uL (1.5-3.5); LYMPHOCYTES % (AUTO) 50.1 %; MEAN CORPUSCULAR HEMOGLOBIN 32.1 pg (27.0-31.0); MEAN CORPUSCULAR HGB CONC 32.8 g/dL (32.0-36.0); MEAN CORPUSCULAR VOLUME 97.6 fL (81.0-99.0); MEAN PLATELET VOLUME 10.4 fL (7.9-10.8); MONOCYTES # (AUTO) 0.6 10^3/uL (0.0-1.0); MONOCYTES % (AUTO) 7.4 %; PLT - PLATELET COUNT 272 10^3/uL (130-450); RED BLOOD COUNT 4.18 10^6/uL (4.20-5.40); RED CELL DISTRIBUTION WIDTH 12.1 % (12.0-15.0); WHITE BLOOD COUNT 7.7 x10^3/uL (4.8-10.8)
[2023-03-20 03:45] LABS: ALBUMIN 3.9 g/dL (3.2-5.5); ALBUMIN/GLOBULIN RATIO 1.1 (1.0-2.2); BILIRUBIN,TOTAL 0.5 mg/dL (0.2-1.0); CALCIUM 8.7 mg/dL (8.5-10.3); CREATININE 0.5 mg/dL (0.4-1.0); POTASSIUM 3.8 mmol/L (3.5-5.0); TOTAL PROTEIN 7.4 g/dL (6.7-8.2)
[2023-03-20] MEDS ORDERED: SODIUM CHLORIDE 0.9% 1,000 ML IV STA (03:46)
[2023-03-20] MEDS ORDERED: MORPHINE 2 MG/ML CARPUJECT IVP STA ×2 (03:46→06:39)
[2023-03-20] MEDS ORDERED: ONDANSETRON 4 MG/2 ML VIAL IVP STA ×2 (03:46→05:54)
[2023-03-20] MEDS ORDERED: iohexoL-300 100 ML VIAL ONE (04:27)
[2023-03-20 04:54] LABS: HCG UR QUAL NEGATIVE
[2023-03-20] MEDS ORDERED: iohexoL-300 100 ML VIAL IVP ONE (05:56)
[2023-03-20] MEDS ORDERED: DIATRIZOATE MEGLU/DIATRIZO SOD 30 ML BOTTLE PO ONE (05:57)
[2023-03-20 07:18] VITALS: BP 133/79
--- NOTE | 2023-03-20 07:49 | CT Report ---
PROCEDURE: ABDOMEN/PELVIS W INDICATIONS: abdominal pain, h/o alondra-en-Y CONTRAST: Omni 300 100ml TECHNIQUE: After the administration of oral and intravenous contrast, 5 mm thick sections acquired from the diap hragms to the symphysis. 5 mm thick coronal and sagittal reformats were acquired. For radiation dos e reduction, the following was used: automated exposure control, adjustment of mA and/or kV accordin g to patient size. COMPARISON: 12/14/2022 FINDINGS: Image quality: Excellent. Lung bases and heart: Unremarkable. Liver: No solid mass. Gallbladder and biliary tree: The gallbladder is distended without calcified gallstones. No gallbladd er wall thickening. Spleen: No splenomegaly. Pancreas: No pancreatic ductal dilation. Adrenals: No adrenal nodule. Kidneys and ureters: No hydronephrosis. No renal cystic lesion which requires follow up. No solid mas s. Stomach, bowel, and peritoneum: Remote gastric bypass. No bowel distension. No pathologic free fluid. Lymph nodes: No central or retroperitoneal adenopathy. Vessels: No infrarenal aortic aneurysm. PELVIS Reproductive organs: There is a collapsed right ovarian cyst and a 2.7 cm noncollapsed right ovarian cyst. Bladder: No abnormal wall thickening, accounting for underdistension. Pelvic lymph nodes: No pelvic adenopathy by size criteria. Bones: No aggressive osseous abnormality. Other: No significant ventral or inguinal hernia. IMPRESSION: 1. Distended gallbladder without radiopaque stones. If there is clinical concern for gallbladder path ology, consider right upper quadrant ultrasound. 2. Collapsed right ovarian cyst, noncollapsed 2.7 cm right ovarian cyst. Findings are concordant with preliminary interpretation provided by [facility]. Reviewed by: Juan Barillas MD on 03/20/2023 7:48 AM PDT Approved by: Juan Barillas MD on 03/20/2023 7:48 AM PDT Station ID: [id number]
== END 2023-03-20 08:16 | disposition home or self-care (01) ==
LOC: ED 01:10
DX: R10.10 Upper abdominal pain, unspecified (principal); I10 Essential (primary) hypertension
CPT/HCPCS: 36415; 74177; 80053; 81003; 81025; 83690; 85025; 93005; 96374; 96375; 99284; Q9967; 81001; 87086

== ENCOUNTER 2023-04-30 11:02 | Outpatient (CLI) | payer OTHER | END 2023-04-30 11:03 | disposition home or self-care (01) | LOC: LAB 11:02 | PROVIDERS: ATTEND Nurse Practitioner | DX: Z32.01 Encounter for pregnancy test, result positive (principal) | CPT/HCPCS: 36415; 84702 ==

== ENCOUNTER 2023-06-10 20:00 | Outpatient (CLI) | payer OTHER | END 2023-06-10 20:01 | disposition home or self-care (01) | LOC: LAB 20:00 | PROVIDERS: ATTEND Nurse Practitioner | DX: N91.2 Amenorrhea, unspecified (principal); Z32.01 Encounter for pregnancy test, result positive | CPT/HCPCS: 36415; 84702 ==

== ENCOUNTER 2023-08-16 19:33 | Emergency (ER) | payer OTHER ==
[2023-08-16 19:46] VITALS: O2SAT 100
[2023-08-16] MEDS ORDERED: SODIUM CHLORIDE 0.9% 1,000 ML IV STA (19:49)
[2023-08-16] MEDS ORDERED: ONDANSETRON 4 MG/2 ML VIAL IVP STA ×2 (19:49→21:21)
[2023-08-16] MEDS ORDERED: MORPHINE 2 MG/ML CARPUJECT IVP STA (19:49)
[2023-08-16 20:02] LABS: BASOPHILS % (AUTO) 0.3 %; EOSINOPHILS % (AUTO) 0.4 %; HCT - HEMATOCRIT 42.3 % (37.0-47.0); HGB - HEMOGLOBIN 14.5 g/dL (12.0-16.0); LYMPHOCYTES # (AUTO) 3.1 10^3/uL (1.5-3.5); LYMPHOCYTES % (AUTO) 28.6 %; MEAN CORPUSCULAR HEMOGLOBIN 31.9 pg (27.0-31.0); MEAN CORPUSCULAR HGB CONC 34.3 g/dL (32.0-36.0); MEAN PLATELET VOLUME 10.2 fL (7.9-10.8); MONOCYTES # (AUTO) 0.7 10^3/uL (0.0-1.0); MONOCYTES % (AUTO) 6.5 %; NEUTROPHILS % (AUTO) 63.9 %; PLT - PLATELET COUNT 306 10^3/uL (130-450); RED BLOOD COUNT 4.55 10^6/uL (4.20-5.40); RED CELL DISTRIBUTION WIDTH 11.7 % (12.0-15.0); WHITE BLOOD COUNT 10.9 x10^3/uL (4.8-10.8)
--- NOTE | 2023-08-16 20:15 | ED Physician Documentation ---
PD HPI ABD PAIN - Stated complaint Stated Complaint: R ABD PX/N/V - Chief complaint Chief Complaint: Abd Pain - History obtained from History obtained from: Patient - Additional information Additional information: 27-year-old female history of obesity status post gastric bypass surgery, depression, migraines presents by private vehicle from home for severe right- sided upper and lower abdominal pain. Patient states that this morning she was experiencing some nausea, which is usual for her postoperatively, however several hours prior to arrival she began to experience upper abdominal pain that radiated to her back and slowly migrated into her lower abdomen. Pain was severe and so she decided to present for evaluation. 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 HEENT: None Psych: Depression Musculoskeletal: Chronic back pain Derm: None - Past Surgical History Past Surgical History: Yes General: Gastric surgery Ortho: Other - Present Medications Home Medications: Ambulatory Orders Medication Instructions Recorded Confirmed Sertraline [Zoloft] 100 mg PO DAILY 02/26/22 01/23/23 Multivitamin 1 tab PO DAILY 12/14/22 01/23/23 metFORMIN [Glucophage] 500 mg PO BID 12/14/22 01/23/23 HYDROcod/ACETAM 5/325 [[place] 5/325] 1 - 2 tablet PO Q6H PRN #14 tablet 03/20/23 Ondansetron Odt [Zofran Odt] 4 mg TL Q6H PRN #10 tablet 03/20/23 HYDROcod/ACETAM 5/325 [[place] 5/325] 1 - 2 tab PO Q6H PRN #10 tablet 08/16/23 Ondansetron Odt [Zofran] 4 mg TL Q6H PRN #30 tablet 08/16/23 - Allergies Allergies/Adverse Reactions: Allergies Allergy/AdvReac Type Severity Reaction Status Date / Time NSAIDS (Non-Steroidal AdvReac Unknown Verified 08/16/23 19:46 Anti-Inflamma phenytoin [From Dilantin] AdvReac Hives Verified 08/16/23 19:46 - Social History Does the pt smoke?: No Smoking Status: Never smoker Does the pt drink ETOH?: Yes Does the pt have substance abuse?: No - Immunizations Immunizations are current?: Yes - POLST Patient has POLST: No PD ED PE NORMAL - Vitals Vital signs reviewed: Yes - General General: Alert and oriented X 3, Well developed/nourished, Other (tearful, in pain) - Cardiac Cardiac: No murmur, Strong equal pulses, Other (tachycardia) - Abdomen Abdomen: Soft, Other (RUQ and RLQ tenderness to deep palpation. 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, No motor deficit, Normal speech - Psych Psych: Normal mood, Normal affect Results - Vitals Vitals: Vital Signs - 24 hr 08/16/23 08/16/23 08/16/23 19:35 19:43 21:43 Temperature 37.1 C 37.1 C 36.8 C Heart Rate 125 H 125 H 80 Respiratory 24 24 16 Rate Blood Pressure 162/114 H 162/114 H 123/80 O2 Saturation 100 100 100 08/16/23 23:00 Temperature 36.8 C Heart Rate 78 Respiratory 16 Rate Blood Pressure 124/80 O2 Saturation 100 Oxygen O2 Source Room air - Labs Labs: Laboratory Tests 08/16/23 08/16/23 08/16/23 19:54 19:54 20:38 WBC 10.9 H RBC 4.55 Hgb 14.5 Hct 42.3 MCV 93.0 MCH 31.9 H MCHC 34.3 RDW 11.7 L Plt Count 306 MPV 10.2 Neut # (Auto) 7.0 H Lymph # (Auto) 3.1 [place] # (Auto) 0.7 Eos # (Auto) 0.0 Baso # (Auto) 0.0 Absolute Nucleated RBC 0.00 Nucleated RBC % 0.0 Sodium 138 Potassium 3.3 L Chloride 103 Carbon Dioxide 25 Anion Gap 10.0 BUN 14 Creatinine 0.6 Estimated GFR (MDRD) 119 Glucose 103 Calcium 9.8 Total Bilirubin 0.6 AST 22 ALT 20 Alkaline Phosphatase 125 H Total Protein 7.5 Albumin 4.5 Globulin 3.0 Albumin/Globulin Ratio 1.5 Lipase 19 Urine Color YELLOW Urine Clarity CLEAR Urine pH 8.0 H Ur Specific [place] 1.010 Urine Protein NEGATIVE Urine Glucose (UA) NEGATIVE Urine Ketones NEGATIVE Urine Occult Blood NEGATIVE Urine Nitrite NEGATIVE Urine Bilirubin NEGATIVE Urine Urobilinogen 1 (NORMAL) Ur Leukocyte Esterase NEGATIVE Ur Microscopic Review NOT INDICATED Urine Culture Comments NOT INDICATED Urine HCG, Qual 08/16/23 20:38 WBC RBC Hgb Hct MCV MCH MCHC RDW Plt Count MPV Neut # (Auto) Lymph # (Auto) [place] # (Auto) Eos # (Auto) Baso # (Auto) Absolute Nucleated RBC Nucleated RBC % Sodium Potassium Chloride Carbon Dioxide Anion Gap BUN Creatinine Estimated GFR (MDRD) Glucose Calcium Total Bilirubin AST ALT Alkaline Phosphatase Total Protein Albumin Globulin Albumin/Globulin Ratio Lipase Urine Color Urine Clarity Urine pH Ur Specific [place] Urine Protein Urine Glucose (UA) Urine Ketones Urine Occult Blood Urine Nitrite Urine Bilirubin Urine Urobilinogen Ur Leukocyte Esterase Ur Microscopic Review Urine Culture Comments Urine HCG, Qual NEGATIVE PD Medical Decision Making - ED course Complexity details: reviewed old records, reviewed results, re-evaluated patient, considered differential, d/w patient, d/w family ED course: Uncomfortable but nontoxic patient presenting for right-sided abdominal pain, previous history of gastric bypass surgery. Abdomen is soft but she does have reproducible tenderness to the right upper and lower quadrants. Pain medications, antiemetics, IV fluids ordered. Laboratory work is reviewed, no significant abnormality identified. Pending CT imaging. Patient had worsening of her pain and additional pain medications were ordered. CT imaging negative for acute findings. Patient states her pain is currently controlled but still present. I discussed all labs and imaging at bedside with the patient. Will discharge patient with oral medications for pain and nausea, recommended strict 24-hour return precautions if she is still feeling pain for recheck.Pain and nausea medication sent to pharmacy of choice. Departure - Departure Disposition: 01 Home, Self Care Clinical Impression: History of gastric bypass Abdominal pain Qualifiers: Abdominal location: right lower quadrant Qualified Code(s): R10.31 - Right lower quadrant pain Condition: Stable Instructions: Abdominal Pain Prescriptions: HYDROcod/ACETAM 5/325 [[place] 5/325] 1 - 2 tab PO Q6H PRN #10 tablet PRN Reason: Pain Ondansetron Odt [Zofran] 4 mg TL Q6H PRN #30 tablet PRN Reason: Nausea / Vomiting Comments: PLEASE RETURN IN 24 HOURS FOR A RECHECK Forms: PCP List Discharge Date/Time: 08/16/23 23:15
[2023-08-16 20:32] LABS: ALBUMIN 4.5 g/dL (3.2-5.5); ALBUMIN/GLOBULIN RATIO 1.5 (1.0-2.2); BILIRUBIN,TOTAL 0.6 mg/dL (0.2-1.0); CALCIUM 9.8 mg/dL (8.5-10.3); CREATININE 0.6 mg/dL (0.6-1.3); POTASSIUM 3.3 mmol/L (3.5-4.5); TOTAL PROTEIN 7.5 g/dL (6.4-8.9)
[2023-08-16 20:45] LABS: BILIRUBIN,URINE NEGATIVE (NEGATIVE); GLUCOSE, URINE (UA) NEGATIVE (NEGATIVE); KETONES,URINE (UA) NEGATIVE (NEGATIVE); LEUKOCYTE ESTERASE, URINE NEGATIVE (NEGATIVE); NITRITE,URINE NEGATIVE (NEGATIVE); OCCULT BLOOD,URINE NEGATIVE (NEGATIVE); PROTEIN,URINE NEGATIVE (NEGATIVE); UROBILINOGEN,URINE 1 (NORMAL) E.U./dL (NORMAL)
[2023-08-16 20:47] LABS: CLARITY,URINE CLEAR (CLEAR); HCG UR QUAL NEGATIVE
[2023-08-16] MEDS ORDERED: HYDROmorphone 1 MG/ML CARPUJECT IVP STA (21:17)
[2023-08-16] MEDS ORDERED: iohexoL-300 100 ML VIAL IVP ONE (22:13)
--- NOTE | 2023-08-16 22:47 | CT Report ---
PROCEDURE: ABDOMEN/PELVIS W INDICATIONS: RLQ ABD PAIN, HX GASTRIC BYPASS CONTRAST: 100 ML OMNI 300 TECHNIQUE: After the administration of intravenous contrast, 5 mm thick sections acquired from the diaphragms to the symphysis. 5 mm thick coronal and sagittal reformats were acquired. For radiation dose reducti on, the following was used: automated exposure control, adjustment of mA and/or kV according to katherine ent size. COMPARISON: CT abdomen pelvis 03/20/2023 FINDINGS: Image quality: Excellent. Lung bases and heart: Unremarkable. Liver: No solid mass. Gallbladder and biliary tree: No radiopaque stones or wall thickening. No biliary dilation. Spleen: No splenomegaly. Pancreas: No pancreatic ductal dilation. Adrenals: No adrenal nodule. Kidneys and ureters: No hydronephrosis. No renal cystic lesion which requires follow up. No solid mas s. Bowel and peritoneum: Gastric bypass. The gastric pouch is not distended. The excluded stomach is mos tly decompressed and is felt to be within normal limits. No small bowel obstruction. No diverticulosi s. The appendix is nondilated. Lymph nodes: No central or retroperitoneal adenopathy. Vessels: No infrarenal aortic aneurysm. PELVIS Reproductive organs: Anteverted uterus. Ovaries are within normal limits. Probable small left ovarian cyst. Clip in the pelvis. Bladder: Mostly decompressed. No stone. Pelvic lymph nodes: No pelvic adenopathy by size criteria. Bones: No aggressive osseous abnormality. Other: No significant ventral or inguinal hernia. IMPRESSION: No acute abnormality identified. No free fluid. No small bowel obstruction. Gastric bypass. Reviewed by: Kashif Lance MD on 08/16/2023 10:46 PM PDT Approved by: Kashif Lance MD on 08/16/2023 10:46 PM PDT Station ID: [id number]
[2023-08-16] MEDS ORDERED: HYDROcod/ACET 5/325 Prepack 4 PO STA (22:52)
[2023-08-16 23:17] VITALS: BP 124/80
== END 2023-08-16 23:15 | disposition home or self-care (01) ==
LOC: ED 19:33
DX: R10.31 Right lower quadrant pain (principal); R10.11 Right upper quadrant pain; Z98.84 Bariatric surgery status
CPT/HCPCS: 36415; 74177; 80053; 81003; 81025; 83690; 85025; 96374; 96375; 96376; 99284; J1170; Q9967; 81001; 87086

== ENCOUNTER 2023-08-17 19:34 | Emergency (ER) | payer OTHER ==
[2023-08-17 19:54] VITALS: O2SAT 100
[2023-08-17] MEDS ORDERED: ONDANSETRON 4 MG/2 ML VIAL IVP STA (20:11)
[2023-08-17] MEDS ORDERED: SODIUM CHLORIDE 0.9% 1,000 ML IV STA (20:11)
--- NOTE | 2023-08-17 20:12 | ED Physician Documentation ---
PD HPI ABD PAIN - Stated complaint Stated Complaint: L ABD PX - Chief complaint Chief Complaint: Abd Pain - History obtained from History obtained from: Patient - Additional information Additional information: 27-year-old female who is about 2 years status post gastric bypass presents with right lower quadrant abdominal pain. The patient was seen yesterday here in the ER for abdominal pain at that time it was more in the right upper quadrant and radiated down into the umbilicus area and has now moved to the right lower quadrant today. She had a CT yesterday which was unremarkable, her labs lik ewise were stable she was advised to come back to the ER if she had ongoing pain after 24 hours. She states she is on pain medicine at home which causes her to fall asleep but does not alleviate the pain. The pain has migrated down into the right lower quadrant today as described in HPI and is tender with palpation. She also noticed some dark urine and had mild dysuria, no urgency or frequency. She feels nauseous, no vomiting but has not really tolerated much p.o. today, no diarrhea or constipation, no fever or chills. She has not had any issues up until now since her gastric bypass. Review of Systems Constitutional: reports: Reviewed and negative Cardiac: reports: Reviewed and negative Respiratory: reports: Reviewed and negative GI: reports: Abdominal Pain, Nausea. denies: Abdominal Swelling, Vomiting, Constipation, Diarrhea, Hematemesis : reports: Dysuria. 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 HEENT: None Psych: Depression Musculoskeletal: Chronic back pain Derm: None - Past Surgical History Past Surgical History: Yes General: Gastric surgery Ortho: Other - Present Medications Home Medications: Ambulatory Orders Medication Instructions Recorded Confirmed Sertraline [Zoloft] 100 mg PO DAILY 02/26/22 01/23/23 Multivitamin 1 tab PO DAILY 12/14/22 01/23/23 metFORMIN [Glucophage] 500 mg PO BID 12/14/22 01/23/23 HYDROcod/ACETAM 5/325 [[place] 5/325] 1 - 2 tablet PO Q6H PRN #14 tablet 05/24/23 Ondansetron Odt [Zofran Odt] 4 mg TL Q6H PRN #10 tablet 03/20/23 HYDROcod/ACETAM 5/325 [[place] 5/325] 1 - 2 tab PO Q6H PRN #10 tablet 08/16/23 Ondansetron Odt [Zofran] 4 mg TL Q6H PRN #30 tablet 08/16/23 Dicyclomine [Bentyl] 10 mg PO QID #30 cap 08/17/23 - Allergies Allergies/Adverse Reactions: Allergies Allergy/AdvReac Type Severity Reaction Status Date / Time NSAIDS (Non-Steroidal AdvReac Unknown Verified 08/17/23 19:43 Anti-Inflamma phenytoin [From Dilantin] AdvReac Hives Verified 08/17/23 19:43 - Social History Does the pt smoke?: No Smoking Status: Never smoker Does the pt drink ETOH?: Yes Does the pt have substance abuse?: No - Immunizations Immunizations are current?: Yes - POLST Patient has POLST: No PD ED PE NORMAL - Vitals Vital signs reviewed: Yes - General General: Alert and oriented X 3, No acute distress, Well developed/nourished - HEENT HEENT: Atraumatic, Moist mucous membranes - Cardiac Cardiac: RRR, No murmur - Respiratory Respiratory: No respiratory distress, Clear bilaterally - Abdomen Abdomen: Normal bowel sounds, Soft, Non distended, Other (Tender to palpation right lower quadrant.) - Derm Derm: Normal color, Warm and dry, No rash - Extremities Extremities: No deformity, No tenderness to palpate - Neuro Neuro: Alert and oriented X 3 Eye Opening: Spontaneous Motor: Obeys Commands Verbal: Oriented GCS Score: 15 Results - Vitals Vitals: Vital Signs - 24 hr 08/17/23 08/17/23 19:40 19:43 Temperature 36.9 C 36.9 C Heart Rate 88 88 Respiratory 16 16 Rate Blood Pressure 137/80 H 137/86 H O2 Saturation 100 100 Oxygen O2 Source Room air - Labs Labs: Laboratory Tests 08/17/23 08/17/23 08/17/23 20:12 20:29 20:29 WBC 7.0 RBC 3.91 L Hgb 12.5 Hct 38.5 MCV 98.5 MCH 32.0 H MCHC 32.5 RDW 12.1 Plt Count 223 MPV 10.5 Neut # (Auto) 3.9 Lymph # (Auto) 2.3 Hill # (Auto) 0.6 Eos # (Auto) 0.1 Baso # (Auto) 0.0 Absolute Nucleated RBC 0.00 Nucleated RBC % 0.0 Sodium 137 Potassium 4.1 Chloride 105 Carbon Dioxide 27 Anion Gap 5.0 L BUN 9 Creatinine 0.5 L Estimated GFR (MDRD) 147 Glucose 84 Calcium 8.8 Total Bilirubin 0.6 AST 16 ALT 16 Alkaline Phosphatase 96 Total Protein 6.5 Albumin 3.7 Globulin 2.8 Albumin/Globulin Ratio 1.3 Lipase 10 L Urine Color DARK YELLOW Urine Clarity HAZY Urine pH 6.0 Ur Specific [place] 1.025 Urine Protein TRACE Urine Glucose (UA) NEGATIVE Urine Ketones NEGATIVE Urine Occult Blood TRACE-INTA Urine Nitrite NEGATIVE Urine Bilirubin NEGATIVE Urine Urobilinogen 4 H Ur Leukocyte Esterase NEGATIVE Urine RBC 0-5 Urine WBC 0-3 Ur Squamous Epith Cells MANY Squamous H Urine Bacteria Moderate H Ur Microscopic Review INDICATED Urine Culture Comments NOT INDICATED Urine HCG, Qual NEGATIVE PD Medical Decision Making - ED course Complexity details: reviewed old records, reviewed results, re-evaluated patient, considered differential, d/w patient ED course: 27-year-old female with past medical history as listed above who presented with ongoing abdominal pain. She was seen yesterday for same and had reassuring labs, vital signs and a CT scan but had ongoing pain today thus came back to the ER. Her exam today indicates some right lower quadrant abdominal pain but otherwise reassuring physical exam, I discussed with patient that I recommend a repeat labs and then make a determination on next steps. Her repeat labs are stable including CBC, CMP and urinalysis. No signs of infection or other acute findings. Patient was given a liter fluid as well as Zofran and she did have some improvement in her symptoms with that. Given her stable labs and stable CT yesterday, I do not see indication for repeat CT scan today. This may be a mild viral syndrome triggering cramping or spasms, she may have irritable bowel but I have low suspicion for appendicitis or other acute abdominal infection at this time. I recommended she continue antiemetics at home, stick to a clear liquid diet and she can try Bentyl as well for pain. I discussed return precautions if new or worsening symptoms particularly if she developed a fever or abdominal distention. The patient is feeling improved and I think stable for discharge home at this time, she was discharged home in stable condition. Departure - Departure Disposition: Home, Self Care Clinical Impression: Abdominal pain Qualifiers: Abdominal location: right lower quadrant Qualified Code(s): R10.31 - Right lower quadrant pain Condition: Good Instructions: ED Abdominal Pain Female Non-Specific Abdominal Pain Prescriptions: Dicyclomine [Bentyl] 10 mg PO QID #30 cap Comments: Deedee, it is not clear what is causing your pain. Your labs and CT yesterday were stable and labs again today are stable and I do not think we need to do another CT scan today. Your pain may be due to spasms or cramps possible triggered by a viral illness or irritable bowel or you may have a very early infection. Given your reassuring labs and vital signs today, however, and your stable CT yesterday, I think an appendicitis or other abdominal infection is unlikely. I recommended continue supportive measures, stick to a clear liquid diet, continue nausea medicine at home and I am also going to prescribe you Bentyl which may help with some of your abdominal pain. Anticipate that you will improve in the next couple of days but if you develop a fever or worsening symptoms, please follow back up here in the ER. Forms: PCP List
[2023-08-17 20:19] LABS: GLUCOSE, URINE (UA) NEGATIVE (NEGATIVE); KETONES,URINE (UA) NEGATIVE (NEGATIVE); LEUKOCYTE ESTERASE, URINE NEGATIVE (NEGATIVE); NITRITE,URINE NEGATIVE (NEGATIVE); OCCULT BLOOD,URINE TRACE-INTA (NEGATIVE); PROTEIN,URINE TRACE mg/dL (NEGATIVE); UROBILINOGEN,URINE 4 E.U./dL (NORMAL)
[2023-08-17 20:23] LABS: BILIRUBIN,URINE NEGATIVE (NEGATIVE); CLARITY,URINE HAZY (CLEAR); HCG UR QUAL NEGATIVE; ICTOTEST,URINE NEGATIVE
[2023-08-17 20:27] LABS: BACTERIA,URINE Moderate /HPF (None Seen); RBC,URINE 0-5 /HPF (0-5); SQUAMOUS EPITHELIAL CELL,UR MANY Squamous (<= Few); WBC,URINE 0-3 /HPF (0-5)
[2023-08-17 20:49] LABS: BASOPHILS % (AUTO) 0.3 %; EOSINOPHILS # (AUTO) 0.1 10^3/uL (0.0-0.7); EOSINOPHILS % (AUTO) 1.7 %; HCT - HEMATOCRIT 38.5 % (37.0-47.0); HGB - HEMOGLOBIN 12.5 g/dL (12.0-16.0); LYMPHOCYTES # (AUTO) 2.3 10^3/uL (1.5-3.5); LYMPHOCYTES % (AUTO) 33.5 %; MEAN CORPUSCULAR HGB CONC 32.5 g/dL (32.0-36.0); MEAN CORPUSCULAR VOLUME 98.5 fL (81.0-99.0); MEAN PLATELET VOLUME 10.5 fL (7.9-10.8); MONOCYTES # (AUTO) 0.6 10^3/uL (0.0-1.0); MONOCYTES % (AUTO) 8.3 %; NEUTROPHILS # (AUTO) 3.9 10^3/uL (1.5-6.6); NEUTROPHILS % (AUTO) 56.1 %; PLT - PLATELET COUNT 223 10^3/uL (130-450); RED BLOOD COUNT 3.91 10^6/uL (4.20-5.40); RED CELL DISTRIBUTION WIDTH 12.1 % (12.0-15.0)
[2023-08-17 21:07] LABS: ALBUMIN 3.7 g/dL (3.2-5.5); ALBUMIN/GLOBULIN RATIO 1.3 (1.0-2.2); BILIRUBIN,TOTAL 0.6 mg/dL (0.2-1.0); CALCIUM 8.8 mg/dL (8.5-10.3); CREATININE 0.5 mg/dL (0.6-1.3); POTASSIUM 4.1 mmol/L (3.5-4.5); TOTAL PROTEIN 6.5 g/dL (6.4-8.9)
[2023-08-17 21:48] VITALS: BP 128/82
== END 2023-08-17 21:46 | disposition home or self-care (01) ==
LOC: ED 19:34
DX: R10.31 Right lower quadrant pain (principal); I10 Essential (primary) hypertension
CPT/HCPCS: 36415; 80053; 81001; 81003; 81025; 83690; 85025; 87086; 96374; 99284

== ENCOUNTER 2023-12-30 15:17 | Outpatient (CLI) | payer OTHER | END 2023-12-30 15:18 | disposition home or self-care (01) | LOC: LAB 15:17 | PROVIDERS: ATTEND Nurse Practitioner | DX: N91.2 Amenorrhea, unspecified (principal) | CPT/HCPCS: 36415; 84702 ==

== ENCOUNTER 2024-01-06 19:06 | Outpatient (CLI) | payer OTHER ==
--- NOTE | 2024-01-07 12:11 | Ultrasound Report ---
PROCEDURE: Pelvic w/Transvaginal INDICATIONS: PELVIC PAIN TECHNIQUE: Real-time scanning was performed of the pelvic organs, with image documentation. Transabdominal appr [facility] only. COMPARISON: None. FINDINGS: Uterus: Uterus is anteverted and normal in size at 8.2 x 2 x 4.5 cm. The myometrium is homogeneous. The endometrium measures 8 mm in combined thickness. Ovaries: The right ovary measures 4. 2 x 2 x 3 cm, with a calculated ovarian volume of 13 cc. The l eft ovary measures 2.9 x 2.3 x 3.8 cm, with a calculated ovarian volume of 14 cc. The ovaries have a normal sonographic appearance. Less than 12 follicles can be seen in each ovary. No adnexal masses are seen. No cystic lesions measuring greater than 3 cm. Other: No pathologic free abdominal or pelvic fluid. IMPRESSION: Mildly enlarged ovaries, which can be seen in the clinical setting of PCOS. Reviewed by: Jose G Oneal MD on 01/07/2024 12:09 PM PDT Approved by: Jose G Oneal MD on 01/07/2024 12:09 PM PDT Station ID: [id number]
== END 2024-01-06 19:07 | disposition home or self-care (01) ==
LOC: DI 19:06
PROVIDERS: ATTEND Nurse Practitioner
DX: N83.8 Other noninflammatory disorders of ovary, fallopian tube and broad ligament (principal); N91.2 Amenorrhea, unspecified; R10.2 Pelvic and perineal pain

== ENCOUNTER 2024-01-13 09:29 | Outpatient (CLI) | payer OTHER ==
--- NOTE | 2024-01-13 12:46 | XRAY Report ---
PROCEDURE: Lumbar Spine 2-3V INDICATIONS: LUMBAR BACK PAIN TECHNIQUE: 3 views of the lumbar spine were acquired. COMPARISON: None. FINDINGS: Bones: 5 [id number] vertebrae are present. Severe scoliosis of the lumbar spine is seen with it s apex at L3-L4. No fracture or subluxation is seen. Degenerative changes of the facet joints are pre sent. Diffuse degenerative disc disease is seen especially prominent at L5-S1. Soft tissues: Overlying bowel gas pattern is unremarkable. IMPRESSION: Degenerative changes and scoliosis of the lumbar spine Reviewed by: Eran Dhillon MD on 01/13/2024 12:44 PM PDT Approved by: Eran Dhillon MD on 01/13/2024 12:44 PM PDT Station ID: [id number]
--- NOTE | 2024-01-13 21:35 | XRAY Report ---
PROCEDURE: Pelvis 1-2V INDICATIONS: LUMBAR BACK PAIN TECHNIQUE: 1 view(s) of the pelvis acquired. COMPARISON: None. FINDINGS: Evaluation is markedly limited on single view. Bones: Within these limitations, no fractures or dislocations. Mild left hip joint space narrowing. No suspicious bony lesions. Soft tissues: Visualized bowel gas pattern is normal. No suspicious soft tissue calcifications. Marbella gical clip in the pelvis. IMPRESSION: Evaluation is markedly limited on single view. 1.Within these limitations, no acute osseous abnormality. If there is high clinical suspicion for a r adiographically occult fracture, recommend cross-sectional imaging for further evaluation. 2.Mild left hip joint space narrowing. Reviewed by: Segundo Santos MD on 01/13/2024 9:34 PM PDT Approved by: Segundo Santos MD on 01/13/2024 9:34 PM PDT Station ID: [id number]
== END 2024-01-13 09:30 | disposition home or self-care (01) ==
LOC: DI 09:29
PROVIDERS: ATTEND Nurse Practitioner
DX: M16.12 Unilateral primary osteoarthritis, left hip (principal); M47.816 Spondylosis without myelopathy or radiculopathy, lumbar region

== ENCOUNTER 2024-01-30 10:54 | Outpatient (CLI) | payer OTHER ==
--- NOTE | 2024-01-30 12:48 | MRI Report ---
PROCEDURE: Lumbar Spine WO INDICATIONS: LOW BACK PAIN TECHNIQUE: Noncontrast sagittal T1 spin echo and T2 fast echo, sagittal STIR, axial T1 and T2 fast spin echo thr ough the lumbar spine. In cases with scoliosis, additional coronal T2 fast spin echo may be performe d. COMPARISON: None. FINDINGS: Image quality: Excellent. Alignment and Curvature: There is normal bony alignment. Bone Marrow: Marrow is of normal overall signal. No acute vertebral body compression fractures. Old mild T12 compression. Spinal Cord: Conus medullaris terminates at the L1 level. Visualized cord demonstrates normal signa l and size. Paraspinous Soft Tissues: No paravertebral masses. T12-L1: No canal stenosis or foraminal stenosis. L1-L2: Disc bulge. No canal stenosis or foraminal stenosis. L2-L3: Disc bulge. No canal stenosis or foraminal stenosis. L3-L4: Short pedicles. Disc bulge. Facet hypertrophy. Mild canal stenosis. A right foraminal disc p rotrusion results in moderate to severe right foraminal narrowing and right foraminal L3 nerve root i mpingement.. L4-L5: Short pedicles. Facet hypertrophy. Disc bulge. Moderate canal stenosis. Moderate right dimas inal narrowing. Moderate to severe left foraminal narrowing with left foraminal L4 nerve root impinge ment. L5-S1: Very large broad-based right paracentral disc extrusion resulting in severe canal stenosis. T here is compression on multiple right-sided nerve roots, including S1 and S2 as well as the left S1 n erve root. Reference sagittal T2 image 10 of series 2 and axial T2 image 45 of series 6. Left foramin al disc bulge results in severe left foraminal narrowing left foraminal L5 nerve root impingement. IMPRESSION: 1. At L5-S1, a large broad-based right paracentral disc extrusion results in severe canal stenosis. T here is compression on multiple right-sided nerve roots including S1 and S2 as well as the left S1 ne rve root. Additionally at that level, there is severe left foraminal narrowing with left foraminal ne rve root impingement secondary to disc bulge. 2. 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 3. Canal stenosis is mild at L3-L4 and moderate at L4-L5. 4. Significant multilevel foraminal narrowing. Findings include moderate to severe right foraminal na rrowing at L3-L4, moderate to severe left foraminal narrowing at L4-L5, and severe left foraminal sandrine rowing at L5-S1. There is foraminal nerve root impingement at these 3 locations. Reviewed by: Juan Barillas MD on 01/30/2024 12:47 PM PDT Approved by: Juan Barillas MD on 01/30/2024 12:47 PM PDT Station ID: [id number]
== END 2024-01-30 10:55 | disposition home or self-care (01) ==
LOC: DI 10:54
PROVIDERS: ATTEND Nurse Practitioner
DX: M51.17 Intervertebral disc disorders with radiculopathy, lumbosacral region (principal); M48.07 Spinal stenosis, lumbosacral region; M51.16 Intervertebral disc disorders with radiculopathy, lumbar region; M48.061 Spinal stenosis, lumbar region without neurogenic claudication; M47.26 Other spondylosis with radiculopathy, lumbar region

== ENCOUNTER 2024-02-04 13:14 | Outpatient (CLI) | payer OTHER ==
--- NOTE | 2024-02-04 14:08 | Sleep Patient Instructions ---
Sleep Center Visit Summary - Patient Visit Information Reason for Visit: Annual follow-up\first compliance visit - Patient Instructions Additional Instructions: You were here for follow up of CPAP therapy. You will be continued on CPAP therapy with pressure at 4-6 cmH2O. Please let us know if the pressure change is uncomfortable and we can make further adjustments of the pressure. I have ordered another sleep study to verify diagnosis and severity due to weight loss. You should follow up with sleep care after the sleep study to go over the results. You may contact us sooner for any questions or concerns. - Clinic Information Contact: [facility] [address] [place] [address] [email or web address] T: [phone]
--- NOTE | 2024-02-04 14:15 | SLEEP CARE CONSULTATION ---
Information from patient questionnaire entered by Viktoriya Farrell. I have reviewed and concur with the information entered by Viktoriya Farrell. This document represents the service I personally performed and the decisions made by me, Eleonora Justice ARNP. History of Present Illness Service Date and Time: 02/04/2024 1314 Previous diagnosis: Moderate, Obstructive Sleep Apnea-Hypopnea Syndrome AHI: 17.9 (09/07/21) Reason for follow up: annual (LAST SEEN 08/2021) Equipment type: CPAP (RESMED Airsense 11, 11/02/2021) Equipment obtained from: Other ([facility]) Mask style: Full face Mask brand: Resmed (AirFit F20, medium cushion) Backup mask available: Yes Last cushion change: July Prior sleep studies: No Type of Sleep Study: Home sleep study (09/07/21) HPI additional information: DEEDEE NINO was diagnosed to have moderate, AHI 17.9, obstructive sleep apnea- hypopnea syndrome and returned today for CPAP therapy annual/first compliance follow-up. Deedee did not return for follow up after set up on CPAP therapy in 2020. She says she has not been using her CPAP consistently since October. She has lost about 150 pounds after bariatric surgery. She says she is no longer snoring when she does not use her machine. Sleep Study - Results Type of Sleep Study: Home sleep study Prior sleep studies: No CPAP Compliance Data - Data Reviewed with Patient Average duration of nightly device use: 2 HRS 6 MINS Compliance rate %: 0 (11/06/22-11/05/23) Current pressure setting (cmH2O): 4-15 (median 4.2, avg 5.5, max 6.2) Average residual AHI: 0.1 Average large leak: 9.6 L/min Subjective Missed days of use due to: reports: mask issues, other (machine not connecting) Patient concerns: reports: mask discomfort, dry mouth, nose, throat, other (rolling around comes off or falls). denies: aerophagia, air blowing in eyes, mask leak noise, condensation in mask/hose, nasal congestion, epistaxis Observed to snore while using device: No Current pressure setting perceived as: too high On therapy, patient: denies: drowsiness while driving Initial Aiken Sleepiness Scale score: 3 (2020) Current Aiken Sleepiness Scale score: 6 Allergies and Home Medications Known drug allergies: Yes (as listed) Drug allergies reviewed: Yes Home medication list reviewed: Yes (Humira, Zoloft, Adderall, gabapentin) Allergy and home medication list: Allergies NSAIDS (Non-Steroidal Anti-Inflamma Adverse Reaction (Verified 01/31/24 12:53) Unknown phenytoin [From Dilantin] Adverse Reaction (Verified 01/31/24 12:53) Hives Home Medications Medication Instructions Recorded Confirmed Last Taken Type Sertraline [Zoloft] 100 mg PO DAILY 02/26/22 01/23/23 01/23/23 History Multivitamin 1 tab PO DAILY 12/14/22 01/23/23 01/23/23 History Adderall 10 mg Tablet 10 mg ORAL BID 02/04/24 02/04/24 Unknown History Gabapentin 300 mg ORAL TID 02/04/24 02/04/24 Unknown History Humira Pen See Rx Instructions .ROUTE .COMPLEX 02/04/24 02/04/24 Unknown History Review of Systems Review of systems same as previous: No (scoliosis w/rotation; degenerative disc & multilevel disc bulges in L1-S1) Physical Exam Vital signs obtained and entered by: ELEONORA ZAMORA Blood Pressure: 160/119 (having severe pain from back issues) Cuff size: regular (left arm) Heart Rate: 91 O2 Saturation: 98 Height: 5 ft 8 in Weight: 218 lb 12.8 oz (weight loss per pt report) Weight change since last visit: 124 Body Mass Index: 33.3 BMI Classification: Obese Impression and Plan 1. Obstructive Sleep Apnea-Hypopnea Syndrome, moderate, with poor treatment compliance and good apnea control. Patient had bariatric surgery and has lost she thinks about 150 pounds in the last two years. She states she is no longer snoring when she does not use the CPAP and the pressure is feeling too high to be able to comfortably wear the mask most of the time. She has not consistently used it for over a year. Because of her significant weight loss, I feel we need to get another baseline to see if she still needs a CPAP. I will order another sleep study and then follow-up with her after it is completed. She states in the meantime with the pressure change to 4-6 cm H2O that she will continue to try to use the CPAP until after the study is done. Patient's apnea severity and rationale for treatment to reduce apnea, improve sleep quality and reduce cardiovascular and cerebrovascular events was reviewed. I also reviewed the benefit of consistent device use of CPAP for ADHD, depression, insulin resistance, migraines. 2. Obesity, unspecified. Currently patients BMI is 33.3. She has lost significant weight. Obesity increases the risk of apnea, CPAP pressure requirements and overall health risks especially cardiovascular and diabetes. Thus patient is advised to continue to try to lose weight. * Change auto CPAP pressure to 4-6 cmH2O * Notify me if snoring with mask or feeling that the pressure is too much or too little * Continue to try to lose weight * Call this office if any problems using CPAP * Schedule polysomnography to reverify diagnosis and severity * Avoid long distance driving or driving when feeling sleepy. * Avoid alcohol, sedative and muscle relaxant around bedtime. * Review instructions provided by trained office staff on how to prepare for the sleep study. * Return for follow-up after sleep study completed. Counseling Topics: Spare mask, Weight loss health impact Prescriptions: Device supplies Follow up with Sleep Care in: other (after sleep study) Plan: PSG/HST Visit Type: In Office Time Spent with Patient (minutes): 29 Provider Statement: I spent 100% of the Face to Face Visit with the patient with greater than 50% spent counseling the patient and coordination of care.
[2024-02-04 14:35] VITALS: BP 160/119; O2SAT 98
== END 2024-02-04 13:15 | disposition home or self-care (01) ==
LOC: SC 13:14
PROVIDERS: ATTEND Nurse Practitioner Family
DX: G47.33 Obstructive sleep apnea (adult) (pediatric) (principal); E66.9 Obesity, unspecified; Z68.33 Body mass index [BMI] 33.0-33.9, adult
CPT/HCPCS: 99212; 99214

== ENCOUNTER 2024-03-31 09:10 | Outpatient (CLI) | payer OTHER | END 2024-03-31 09:11 | disposition home or self-care (01) | LOC: SC 09:10 | PROVIDERS: ATTEND Nurse Practitioner Family | DX: R09.02 Hypoxemia (principal) | CPT/HCPCS: 95806 ==

== ENCOUNTER 2024-04-28 06:44 | Outpatient (CLI) | payer OTHER ==
--- NOTE | 2024-04-28 10:37 | MRI Report ---
PROCEDURE: Cervical Spine WO INDICATIONS: LUMBAR RADICULOPATHY, BILAT ARM NUMBNESS TECHNIQUE: Noncontrast sagittal T1 spin echo and T2 fast spin echo, sagittal STIR, foraminal oblique sagittal T2 fast spin echo, and axial gradient echo or T2 fast spin echo through the cervical spine. COMPARISON: None. FINDINGS: Image quality: Excellent. Alignment and Curvature: There is normal bony alignment. Bone Marrow: Marrow demonstrates normal overall signal. Spinal Cord: Visualized spinal cord has normal size and signal. No cerebellar tonsillar herniation. Paraspinous Soft Tissues: No paravertebral masses. Prevertebral soft tissues are normal in thicknes s. C2-C3: Normal in appearance. C3-C4: Normal in appearance. C4-C5: Mild disc bulge. Borderline canal stenosis. AP diameter of the central canal measures 9.7 mm. Reference axial image 18 of series 6. There is left uncovertebral joint hypertrophy resulting in mod erate to severe left foraminal narrowing and a degree of left foraminal C5 nerve root impingement. C5-C6: Mild central posterior disc protrusion indenting on the cord. Resultant moderate canal stenos is. AP diameter of the central canal is approximately 8.4 mm. Reference image 25 of series 6. No fora dione stenosis. C6-C7: Mild right paracentral disc protrusion indenting on the cord. There is moderate resultant can al stenosis at this level as well, with AP diameter of the central canal measuring 8.4 mm. No foramin al stenosis. C7-T1: Normal in appearance. IMPRESSION: 1. There are disc protrusions at C5-C6 and C6-C7. 2. Canal stenosis is borderline at C4-C5 and moderate at C5-C6 and C6-C7. 3. Moderate to severe left foraminal narrowing at C4-C5. Reviewed by: Juan Barillas MD on 04/28/2024 10:35 AM PDT Approved by: Juan Barillas MD on 04/28/2024 10:35 AM PDT Station ID: [id number]
--- NOTE | 2024-04-28 10:46 | MRI Report ---
PROCEDURE: Thoracic Spine WO INDICATIONS: LUMBAR RADICULOPATHY, BILAT ARM NUMBNESS TECHNIQUE: Noncontrast sagittal T1 spine echo and T2 fast spin echo, sagittal STIR, axial T1 and T2 fast spin ec ho through the thoracic spine. COMPARISON: Cervical spine MRI from the same date, lumbar spine MRI dated 01/30/2024. FINDINGS: Image quality: Excellent. Alignment and Curvature: There is normal bony alignment. Bone Marrow: Marrow is of normal overall signal. No acute vertebral body compression fractures. Spinal Cord: Visualized spinal cord is normal in size and signal. Paraspinous Soft Tissues: No paravertebral masses. Miscellaneous: On axial images, central canal and foramina appear widely patent at all scanned level s. At T7-T8, there is a small left paracentral disc protrusion indenting on the cord without canal steno sis. Reference axial image 22 of series 11. At T9-T10, there is a shallow central posterior disc protrusion minimally indenting on the cord with shallow inferiorly extruded disc material which does not abut the cord. There is no canal stenosis or foraminal stenosis at this level. At T10-T11 there is disc bulge without abutting the cord and without canal stenosis. At T11-T12, there is a left paracentral disc protrusion which does not abut the cord. There is no can al stenosis or significant foraminal stenosis at that level. IMPRESSION: 1. There are multiple small focal disc protrusions, 2 of which indents on the cord (T7-T8 and T9-T10) . 2. No canal stenosis or foraminal stenosis. Reviewed by: Juan Barillas MD on 04/28/2024 10:44 AM PDT Approved by: Juan Barillas MD on 04/28/2024 10:44 AM PDT Station ID: [id number]
== END 2024-04-28 06:45 | disposition home or self-care (01) ==
LOC: DI 06:44
PROVIDERS: ATTEND Neurological Surgery
DX: M50.122 Cervical disc disorder at C5-C6 level with radiculopathy (principal); M47.22 Other spondylosis with radiculopathy, cervical region; M48.02 Spinal stenosis, cervical region; M51.14 Intervertebral disc disorders with radiculopathy, thoracic region